=== PATIENT | female | born 1955 | race Caucasian/White ===

== ENCOUNTER → 2016-05-24 | Outpatient (REF) | payer OTHER ==
[2016-05-24 17:09] LABS: ALBUMIN 3.6 GM/DL (3.2-5.2); ALBUMIN/GLOBULIN RATIO 1.03 (1.00-1.93); ALKALINE PHOSPHATASE 99 U/L (45-117); ALT/SGPT 28 U/L (12-78); ANION GAP 8 MEQ/L (8-16); AST/SGOT 15 U/L (15-37); BILIRUBIN,TOTAL 0.4 MG/DL (0.2-1.0); BLOOD UREA NITROGEN 17 MG/DL (7-18); CALCIUM LEVEL 9.1 MG/DL (8.5-10.1); CARBON DIOXIDE LEVEL 31 MEQ/L (21-32); CHLORIDE LEVEL 103 MEQ/L (98-107); CHOLESTEROL LEVEL 186 MG/DL (<200); CREATININE FOR GFR 0.62 MG/DL (0.55-1.02); GLOMERULAR FILTRATION RATE > 60.0 (>51); GLUCOSE, FASTING 181 MG/DL (70-105); POTASSIUM SERUM 4.1 MEQ/L (3.5-5.1); SODIUM LEVEL 142 MEQ/L (136-145); TOTAL PROTEIN 7.1 GM/DL (6.4-8.2); TRIGLYCERIDES LEVEL 298 MG/DL (<150)
== END | disposition home or self-care (01) ==
LOC: M SFHCCLAY 10:38
PROVIDERS: ATTEND Nurse Practitioner
DX: E11.9 Type 2 diabetes mellitus without complications (principal)

== ENCOUNTER → 2016-08-22 | Outpatient (REF) | payer OTHER ==
[2016-08-22 17:36] LABS: ALBUMIN 3.7 GM/DL (3.2-5.2); ALBUMIN/GLOBULIN RATIO 1.12 (1.00-1.93); ALKALINE PHOSPHATASE 70 U/L (45-117); ALT/SGPT 59 U/L (12-78); ANION GAP 8 MEQ/L (8-16); AST/SGOT 68 U/L (15-37); BILIRUBIN,TOTAL 0.6 MG/DL (0.2-1.0); BLOOD UREA NITROGEN 12 MG/DL (7-18); CALCIUM LEVEL 9.1 MG/DL (8.5-10.1); CARBON DIOXIDE LEVEL 28 MEQ/L (21-32); CHLORIDE LEVEL 103 MEQ/L (98-107); CHOLESTEROL LEVEL 124 MG/DL (<200); CREATININE FOR GFR 0.73 MG/DL (0.55-1.02); GLOMERULAR FILTRATION RATE > 60.0 (>51); GLUCOSE, FASTING 259 MG/DL (70-105); POTASSIUM SERUM 4.5 MEQ/L (3.5-5.1); SODIUM LEVEL 139 MEQ/L (136-145); TRIGLYCERIDES LEVEL 212 MG/DL (<150)
== END ==
LOC: M SFHCCLAY 11:22
PROVIDERS: ATTEND Nurse Practitioner
DX: E11.8 Type 2 diabetes mellitus with unspecified complications (principal)

== ENCOUNTER → 2016-10-21 | Outpatient (CLI) | payer OTHER ==
--- NOTE | 2016-10-22 01:47 | REP ---
Clinical: Chest pain. Comparison: None. Technique: PA and lateral. Findings: The mediastinum and cardiac silhouette are normal. The lung de jesus demonstrate chronic-appearing changes without obvious acute consolidation, effusion, or pneumothorax. The skeletal structures are intact and normal. Impression: Chronic appearing changes. No acute process identified. If patient remains symptomatic, consider chest CT for follow-up. Signed by Albert Phan MD 10/22/2016 01:38 A
== END ==
LOC: M CLY 14:09
PROVIDERS: ATTEND Nurse Practitioner
DX: R07.9 Chest pain, unspecified (principal)

== ENCOUNTER → 2016-11-25 | Outpatient (REF) | payer OTHER ==
[2016-11-26 11:24] LABS: ALBUMIN 3.8 GM/DL (3.2-5.2); ALBUMIN/GLOBULIN RATIO 1.12 (1.00-1.93); ALKALINE PHOSPHATASE 86 U/L (45-117); ALT/SGPT 42 U/L (12-78); ANION GAP 11 MEQ/L (8-16); AST/SGOT 26 U/L (15-37); BILIRUBIN,TOTAL 0.5 MG/DL (0.2-1.0); BLOOD UREA NITROGEN 11 MG/DL (7-18); CALCIUM LEVEL 8.9 MG/DL (8.5-10.1); CARBON DIOXIDE LEVEL 23 MEQ/L (21-32); CHLORIDE LEVEL 105 MEQ/L (98-107); CHOLESTEROL LEVEL 95 MG/DL (<200); CREATININE FOR GFR 0.75 MG/DL (0.55-1.02); GLOMERULAR FILTRATION RATE > 60.0 (>51); GLUCOSE, FASTING 311 MG/DL (70-105); SODIUM LEVEL 139 MEQ/L (136-145); TOTAL PROTEIN 7.2 GM/DL (6.4-8.2); TRIGLYCERIDES LEVEL 294 MG/DL (<150)
== END ==
LOC: M SFHCCLAY 14:25
PROVIDERS: ATTEND Nurse Practitioner
DX: E11.8 Type 2 diabetes mellitus with unspecified complications (principal); E78.5 Hyperlipidemia, unspecified

== ENCOUNTER → 2016-11-27 | Outpatient (CLI) | payer OTHER ==
--- NOTE | 2016-11-27 17:11 | REP ---
RIGHT HIP: Two views of the right hip are performed. There is no evidence of acute fracture or dislocation. There is moderate diffuse joint space narrowing with subchondral sclerosis and diffuse spurring. Mild tendinous calcifications are seen along the greater trochanter. IMPRESSION: Moderate degenerative changes.
== END ==
LOC: M CLY 15:41
PROVIDERS: ATTEND Nurse Practitioner
DX: M16.11 Unilateral primary osteoarthritis, right hip (principal)

== ENCOUNTER → 2016-12-18 | Outpatient (CLI) | payer OTHER ==
--- NOTE | 2016-12-18 17:34 | REP ---
CAROTID ULTRASOUND: Real-time sonographic evaluation and duple Doppler interrogation of extracranial carotid vasculature is performed. There is moderately severe partially calcified plaque in the right carotid bulb but no elevation is noted of the peak systolic velocity in the right internal carotid artery, without hemodynamically significant stenosis of the right ICA. Findings are compatible with luminal narrowing of the right IMMANUEL less than 50%. 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 There is reversal of flow in the left external carotid artery which supplies the left internal carotid artery. Normal direction of flow is seen in the right vertebral artery. The left vertebral artery is not visualized. RIGHT LEFT Peak systolic velocity ICA 86.8 cm/s 42.2 cm/s Diastolic velocity ICA 21.7 20.4 Peak systolic velocity CCA 63.8 10.6 Peak systolic velocity ECA 155.3 82.2 ICA/CCA ratio 1.36 0.68 IMPRESSION: Moderately severe plaquing and narrowing right carotid bulb. However there is no compelling duplex Doppler sonographic evidence of hemodynamically significant stenosis of the right internal carotid artery. The left common carotid artery is occluded. There is reversal of flow in the left external carotid artery which supplies flow to the left internal carotid artery. Signed by Rigo Nina MD 12/19/2016 01:28 P
== END ==
LOC: M RAD 14:38
PROVIDERS: ATTEND Internal Medicine Cardiovascular Disease
DX: I65.23 Occlusion and stenosis of bilateral carotid arteries (principal)

== ENCOUNTER → 2017-02-24 | Outpatient (REF) | payer OTHER ==
[2017-02-24 12:24] LABS: ALBUMIN 3.8 GM/DL (3.2-5.2); ALBUMIN/GLOBULIN RATIO 1.19 (1.00-1.93); ALKALINE PHOSPHATASE 79 U/L (45-117); ALT/SGPT 40 U/L (12-78); ANION GAP 11 MEQ/L (8-16); AST/SGOT 22 U/L (15-37); BILIRUBIN,TOTAL 0.5 MG/DL (0.2-1.0); BLOOD UREA NITROGEN 11 MG/DL (7-18); CALCIUM LEVEL 8.5 MG/DL (8.8-10.2); CARBON DIOXIDE LEVEL 24 MEQ/L (21-32); CHLORIDE LEVEL 103 MEQ/L (98-107); CHOLESTEROL LEVEL 104 MG/DL (<200); CREATININE FOR GFR 0.75 MG/DL (0.55-1.02); GLOMERULAR FILTRATION RATE > 60.0 (>45); GLUCOSE, FASTING 302 MG/DL (80-110); POTASSIUM SERUM 4.4 MEQ/L (3.5-5.1); SODIUM LEVEL 138 MEQ/L (136-145); TRIGLYCERIDES LEVEL 186 MG/DL (<150)
== END ==
LOC: M SFHCCLAY 10:46
PROVIDERS: ATTEND Nurse Practitioner
DX: E11.8 Type 2 diabetes mellitus with unspecified complications (principal)

== ENCOUNTER → 2017-06-03 | Outpatient (REF) | payer OTHER ==
[2017-06-03 20:02] LABS: ESTIMATED AVERAGE GLUCOSE 329 MG/DL (60-110); HEMOGLOBIN A1c 13.1 %
[2017-06-03 20:19] LABS: ALBUMIN 3.7 GM/DL (3.2-5.2); ALBUMIN/GLOBULIN RATIO 1.06 (1.00-1.93); ALKALINE PHOSPHATASE 142 U/L (45-117); ALT/SGPT 35 U/L (12-78); ANION GAP 11 MEQ/L (8-16); AST/SGOT 18 U/L (7-37); BILIRUBIN,TOTAL 0.3 MG/DL (0.2-1.0); BLOOD UREA NITROGEN 9 MG/DL (7-18); CALCIUM LEVEL 8.6 MG/DL (8.8-10.2); CARBON DIOXIDE LEVEL 27 MEQ/L (21-32); CHLORIDE LEVEL 96 MEQ/L (98-107); CREATININE FOR GFR 0.89 MG/DL (0.55-1.02); GLOMERULAR FILTRATION RATE > 60.0 (>45); POTASSIUM SERUM 4.1 MEQ/L (3.5-5.1); SODIUM LEVEL 134 MEQ/L (136-145); TOTAL PROTEIN 7.2 GM/DL (6.4-8.2)
[2017-06-03 20:52] LABS: GLUCOSE, FASTING 650 MG/DL (70-100)
== END ==
LOC: M SFHCCLAY 13:22
DX: E11.8 Type 2 diabetes mellitus with unspecified complications (principal)

== ENCOUNTER → 2017-06-05 | Outpatient (REF) | payer OTHER ==
[2017-06-05 21:31] LABS: CREATININE, URINE 29.1 MG/DL; MALB URINE SIEMENS 12.5 MG/L; MAU/CREAT RATIO 42.9 MCG/MG (0.0-30.0)
== END ==
LOC: M SFHCCLAY 13:34
DX: E11.65 Type 2 diabetes mellitus with hyperglycemia (principal)
CPT/HCPCS: 82043

== ENCOUNTER → 2017-06-30 | Outpatient (CLI) | payer OTHER | LOC: M RAD 15:52 | DX: R53.1 Weakness (principal); R26.0 Ataxic gait | CPT/HCPCS: 70551 ==

== ENCOUNTER → 2017-07-09 | Outpatient (REF) | payer OTHER ==
[2017-07-09 17:01] LABS: ALBUMIN 3.3 GM/DL (3.2-5.2); ALBUMIN/GLOBULIN RATIO 0.97 (1.00-1.93); ALKALINE PHOSPHATASE 86 U/L (45-117); ALT/SGPT 24 U/L (12-78); ANION GAP 3 MEQ/L (8-16); AST/SGOT 17 U/L (7-37); BILIRUBIN,TOTAL 0.5 MG/DL (0.2-1.0); BLOOD UREA NITROGEN 12 MG/DL (7-18); CALCIUM LEVEL 8.8 MG/DL (8.8-10.2); CARBON DIOXIDE LEVEL 34 MEQ/L (21-32); CHLORIDE LEVEL 102 MEQ/L (98-107); CREATININE FOR GFR 0.63 MG/DL (0.55-1.30); GLOMERULAR FILTRATION RATE > 60.0 (>45); GLUCOSE, FASTING 302 MG/DL (70-100); GLUCOSE,RANDOM 302 MG/DL (LESS THAN 200); POTASSIUM SERUM 4.1 MEQ/L (3.5-5.1); SODIUM LEVEL 139 MEQ/L (136-145); TOTAL PROTEIN 6.7 GM/DL (6.4-8.2)
[2017-07-09 19:03] LABS: MAU/CREAT RATIO 156.2 MCG/MG (0.0-30.0)
== END ==
LOC: M SFHCCLAY 11:38
DX: E11.65 Type 2 diabetes mellitus with hyperglycemia (principal)

== ENCOUNTER → 2017-07-30 | Outpatient (REF) | payer OTHER ==
[2017-07-30 12:08] LABS: AMPHETAMINES URINE REFLEX NEGATIVE (NEGATIVE); BARBITURATES URINE REFLEX NEGATIVE (NEGATIVE); BENZODIAZEPINES URINE REFLEX NEGATIVE (NEGATIVE); COCAINE METABOLITE URINE REFLE NEGATIVE (NEGATIVE); METHADONE URINE REFLEX NEGATIVE (NEGATIVE); PHENCYCLIDINE URINE REFLEX NEGATIVE (NEGATIVE)
[2017-07-30 12:12] LABS: CANNABINOIDS URINE REFLEX PENDING CONFIRMATION (NEGATIVE); OPIATES URINE REFLEX PENDING CONFIRMATION (NEGATIVE)
== END ==
LOC: M SFHCCLAY 09:22
DX: R26.0 Ataxic gait (principal)
CPT/HCPCS: 80349

== ENCOUNTER → 2019-11-10 | Outpatient (CLI) | payer OTHER | LOC: M LABSMTC 11:40 | PROVIDERS: ATTEND Internal Medicine Cardiovascular Disease | DX: Z01.812 Encounter for preprocedural laboratory examination (principal); Z11.59 Encounter for screening for other viral diseases | CPT/HCPCS: C9803; U0003 ==

== ENCOUNTER → 2020-01-07 | Outpatient (CLI) | payer OTHER ==
[~2020-01-07] MED LIST: ALBU83IN INH; ASPI81CH33 PO; BACL10TA8 PO; CLOP75TA2 PO; DULO1CAP6 PO; FURO20TA2 PO; GABA800T4 PO; LISI-542 PO; METF10004 PO; METO75TA PO; SIMV40TA20 PO; SYMB16INH INH; TRAM50TA2 PO
--- NOTE | 2020-01-21 15:28 | REP ---
BILATERAL LOWER EXTREMITY ARTERIAL DOPPLER ULTRASOUND HISTORY: Peripheral vascular disease. FINDINGS: There is a disparity in brachial artery blood pressure in the arms, 80 on the left and 130 on the right. Ankle-brachial index on the right is 0.5 and on the left 1.0. Heavily calcified vessels are observed bilaterally in the lower extremities. Monophasic waveforms are noted throughout the right lower extremity, question inflow disease. Biphasic waveforms are noted in the left lower extremity. No high grade stenosis is seen. Right lower extremity arterial Doppler velocity chart: Right SCIENTIFIC WRITER PSV 65 cm/s. Profunda 39. Proximal SFA 65. Mid SFA 85. Distal SFA 45. Popliteal 38. Proximal BERENICE 51. Tibioperoneal trunk 48. Proximal OIL FIELD TECHNICIAN 37. Distal OIL FIELD TECHNICIAN 38. Distal BERENICE 28. Left lower extremity arterial Doppler velocity chart: Left SCIENTIFIC WRITER PSV 118 cm/s. Profunda 51. Proximal SFA 105. Mid SFA 146. Distal SFA 104. Popliteal 84. Proximal BERENICE 50. Tibioperoneal trunk 64. Proximal OIL FIELD TECHNICIAN 66. Distal OIL FIELD TECHNICIAN 31. Distal BERENICE 48. MTDD
== END ==
LOC: M RAD 13:55
PROVIDERS: ATTEND Podiatrist Foot & Ankle Surgery
DX: I70.203 Unspecified atherosclerosis of native arteries of extremities, bilateral legs (principal)

== ENCOUNTER → 2020-02-08 | Outpatient (CLI) | payer OTHER ==
[~2020-02-08] MED LIST changes: +ACETAMINOPHEN TAB 650MG DOSE (2X325MG) PO PRN; +HumaLOG INSULIN (NovoLOG) PER UNIT As Ordered ONE; +ISOVUE-300 61% 50ML VIAL As Ordered ONE; +LIDOCAINE 1% MDV 20ML VIAL As Ordered ONE; +MIDAZOLAM INJ 2MG/2ML VIAL (J2250 PER 1MG) As Ordered ONE; +PERCOCET 5MG/325MG TAB As Ordered ONE; +PERCOCET 5MG/325MG TAB PO PRN; +fentaNYL 100 MCG/2 ML INJECTION (J3010) As Ordered ONE
--- NOTE | 2020-02-08 11:07 | ROOPDOC ---
[facility] Report Of Operation Report of Operation DATE OF PROCEDURE: 02/08/20 PREPROCEDURE DIAGNOSES: Atherosclerosis in the [place] artery supply style limiting claudication POSTPROCEDURE DIAGNOSES: Same PROCEDURE: 1. Ultrasound-guided access bilateral common femoral arteries 2. Aortoiliofemoral arteriogram 3. Attempt to cross chronic total occlusion right common iliac artery, aborted 4. Right lower extremity runoff from right femoral sheath 5. Stenting the left common iliac artery with 8 x 27 and 8 x 57 express balloon expandable stents 6. Completion arteriogram 7. Mynx closure bilateral common femoral artery SURGEON: Cedric Castorena MD ANESTHESIA: Local anesthesia 15 mL lidocaine. Moderate intravenous conscious sedation was supervised by Dr. Castorena. The patient was independently monitored by registered nurse assigned to the Department of radiology using automated blood pressure, EKG, and pulse oximetry. The detailed sedation record is permanently stored in the hospital information system. The following is a brief record: Start time 09:42, stop time 10:31, Versed 2 mg IV, fentanyl 100 g IV, heparin 3000 units IV. CONTRAST: 40 mL Isovue-300 INDICATION FOR PROCEDURE: This a very pleasant 65-year-old patient with severe claudication right lower extremity greater than left, lifestyle limiting with short distance claudication and long recovery time in the right leg. Her symptoms have been present for over 4 years, but they've gotten progressively worse. Risks benefits alternatives to an arteriogram potential intervention were explained to the patient she is agreeable to proceed. Informed consent was obtained. INTERPRETATION: 1. The distal aorta is calcified and ectatic but patent. 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 The external iliac and hypogastric are heavily calcified but patent. The artery fills from collaterals from the left iliac circulation. The left common iliac artery is heavily calcified with multiple areas of stenosis ranging from 30% to 70%. Hypogastric is patent and significant collaterals to the right side. The external iliac artery is calcified but patent. 2. The right lower extremity runoff was challenging to see due to washout of contrast from limited flow. It appears that the SFA is patent but calcified and ectatic. There is good flow through the profunda. The popliteal artery is patent and there is two-vessel runoff to the foot through the posterior tibial artery and peroneal artery. Was not able to visualize the anterior tibial artery well, so I'm not sure if there is any flow or trickle flow, but no substantial flow was noted. 3. After angioplasty and stenting of the left common iliac artery, there is widely patent flow with no residual stenosis noted and excellent flow into the hypogastric and external iliac artery as well as collateral circulation to the right side. REPORT OF OPERATION: The patient was brought to the angiographic suite in stable condition. Her bilateral groins were prepped and draped in a sterile fashion. A timeout was performed. Sedation was administered without complication. Local anesthesia was administered to the skin and subcutaneous tissue over the left common femoral artery. A microneedle was used to access the artery under ultrasound guidance. A wire was passed through this access and the needle was removed. A 4 Faroese sheath was placed and flushed with saline. A Glidewire and flushing catheter were advanced into the distal aorta. Aortoiliofemoral arteriograms were performed. Please interpretation above. We attempted to go up and over the bifurcation through the occlusion in the right common iliac artery from an antegrade approach, but this was unsuccessful. After 5 minutes, we decided to abort this. Due to stenosis noted in the left iliac, we exchanged the sheath over a wire for 7 Faroese sheath. At this point, I determine the patient would need left iliac stents regardless of that if we were able to cross the right side, as we would need improved inflow to use the left femoral as a donor for a femorofemoral bypass to the right. We then used ultrasound to gain access to the right common femoral artery with a microneedle. A wire was passed through this access and the needle was removed. A 4 Faroese sheath was placed and flushed with saline. We attempted to cross retrograde through the occlusion in the right common iliac artery from this access, but unfortunately this was not successful. We then exchanged the sheath over wire for 5 Faroese sheath so we would be able to try to cross with the help of her [place] catheter. Following this, we spent about 30 minutes trying to cross retrograde through the occlusion. We eventually were able to cross in a subintimal playing, but we were not able to reenter the true lumen in the aorta. After 30 minutes, this was aborted. Contrast injection confirmed that there was no extravasation from our attempts to cross the occlusion. We then returned our attention to the left groin. First and 8 x 57 balloon expandable stent was placed in the distal to proximal common iliac artery, and this was extended proximally with an 8 x 27 balloon expandable stent with a 1 cm overlap. Following this, there was widely patent flow through the left iliac system with no significant residual stenosis. No dissection or extravasation were noted. The flow was brisk and rapid and had excellent filling across the abdomen to the right iliac system. This then concluded the procedure. We do plan Mynx closure device in the left common femoral artery. The closure device had a missing part, and I am unsure if deployment was successful or unsuccessful, so we held pressure an extra 20 minutes to make sure we had good hemostasis. On the right, the Mynx closure device to play without difficulty and good hemostasis was noted. Pressure was held for 5 minutes and sterile dressings were applied. Patient was then taken to recovery in stable condition. She tolerated the procedure and the sedation well. ESTIMATED BLOOD LOSS: Approximately 5 mL. COMPLICATIONS: None. PLAN: Okay to resume home diet medications. Patient will need 60 days Plavix post stenting. No strenuous exercise or lifting greater than 5 pounds for 48 hours. We will see her back in clinic in a week to check her groin access sites and discuss options for a femoral-femoral bypass. The patient has chronic collateralization to the right side, and we have improved flow now by stenting the left iliac artery to provide better inflow to the right side as well as the left. We appreciate the opportunity to per to speak the care of this patient. CEDRIC CASTORENA MD Feb 08, 2020 11:07
[2020-02-08 14:45] VITALS: BP 147/59
== END ==
LOC: M IRPRO 08:27
PROVIDERS: ATTEND Surgery Vascular Surgery
DX: I70.213 Atherosclerosis of native arteries of extremities with intermittent claudication, bilateral legs (principal); I70.92 Chronic total occlusion of artery of the extremities; I65.23 Occlusion and stenosis of bilateral carotid arteries; I10 Essential (primary) hypertension; I25.2 Old myocardial infarction; E11.9 Type 2 diabetes mellitus without complications; E78.00 Pure hypercholesterolemia, unspecified; F17.210 Nicotine dependence, cigarettes, uncomplicated; Z79.82 Long term (current) use of aspirin; Z79.84 Long term (current) use of oral hypoglycemic drugs; Z79.899 Other long term (current) drug therapy; Z91.018 Allergy to other foods; Z91.041 Radiographic dye allergy status
CPT/HCPCS: 37221; 75630; 99152; 99153; C1760; C1769; C1876; C1887; C1894; J1644; J2250; J3010; Q9967

== ENCOUNTER → 2020-02-17 | Outpatient (CLI) | payer OTHER ==
[~2020-02-17] MED LIST changes: -ACETAMINOPHEN TAB 650MG DOSE (2X325MG) PO PRN; -HumaLOG INSULIN (NovoLOG) PER UNIT As Ordered ONE; -ISOVUE-300 61% 50ML VIAL As Ordered ONE; -LIDOCAINE 1% MDV 20ML VIAL As Ordered ONE; -MIDAZOLAM INJ 2MG/2ML VIAL (J2250 PER 1MG) As Ordered ONE; -PERCOCET 5MG/325MG TAB As Ordered ONE; -PERCOCET 5MG/325MG TAB PO PRN; -fentaNYL 100 MCG/2 ML INJECTION (J3010) As Ordered ONE
--- NOTE | 2020-02-22 07:51 | REP ---
CAROTID ULTRASOUND HISTORY: Carotid occlusion. TECHNIQUE: Real-time ultrasound evaluation and duplex Doppler interrogation of the extracranial carotid vasculature is performed. FINDINGS: Globhlgw-jf-xvwiss calcific plaque is seen in the right carotid bulb with distal acoustic shadowing somewhat limiting evaluation of the underlying lumen. There is plaquing extending into the proximal internal and external carotid arteries. I do not see evidence of significantly elevated peak systolic velocity in the right internal carotid artery with no definite duplex Doppler sonographic evidence of hemodynamically significant stenosis. On the left, there is occlusion of the proximal and mid common carotid artery. There is reversal of flow in the left external carotid artery and distal common carotid artery. Patent flow is seen in a normal direction in the left internal carotid artery. There is normal direction of flow in both vertebral arteries. PEAK FLOW VELOCITY ANALYSIS RIGHT LEFT ICA PSV 115 cm/s 38.2 cm/s ICA EDV 31.0 cm/s 23.3 cm/s ECA PSV 98.7 49.7 (reversed) CCA PSV 48.0 cm/s 27.2 cm/s (reversed) ICA/CCA RATIO 2.4 1.8 IMPRESSION: Cfdohqmy-rf-euebiu calcific plaque right carotid bulb extending into the internal and external carotid arteries with luminal narrowing not optimally evaluated due to distal acoustic shadowing. No definite duplex Doppler sonographic evidence of hemodynamically significant stenosis on the right. On the left, there is occlusion of the proximal and mid common carotid artery as seen on prior study of 12/18/2016. There is reversal of flow in the left external carotid artery with normal direction of flow in the left internal carotid artery. [facility]
== END ==
LOC: M RAD 12:38
PROVIDERS: ATTEND Physician Assistant
DX: I65.23 Occlusion and stenosis of bilateral carotid arteries (principal)

== ENCOUNTER → 2020-02-25 | Outpatient (CLI) | payer OTHER ==
--- NOTE | 2020-02-25 12:24 | REP ---
INDICATION: CLAUDICATION. Atherosclerosis of [place] arteries. Intermittent claudication bilateral legs. Patient is status post left common iliac artery stenting. COMPARISON: Comparison sonography January 07, 2020.. TECHNIQUE: Bilateral lower extremity arterial Doppler sonography. FINDINGS: Ankle-brachial index remains normal on the left at 0.96. It is low on the right and 0.48 essentially unchanged. The left brachial artery blood pressure is lower than the right by 40 mmHg. Questions subclavian stenosis on the left. Relatively slow flow observed in the distal aorta. The right common iliac artery is occluded. Monophasic tardus parvus waveform is seen in the right external iliac artery. An patent left common iliac artery stent. In the right lower extremity, monophasic waveforms are noted with tardus parvus waveforms and decreased peak systolic flow velocities indicating an interval decrement in flow pattern in the right lower extremity generally. No focal stenosis. Increased flow velocities in the left common femoral artery it are observed. Biphasic waveforms are noted through most of the left lower extremity tracings. Right lower extremity arterial Doppler velocity chart: Abdominal aorta PSV 30 cm/S Right IVON occluded Right EIA 17 Right DIP DYER PSV 58 cm/S Profundal 40 Proximal SFA 49 Mid SFA 46 Distal SFA 45 Popliteal 30 Proximal BERENICE 26 Tibial-peroneal trunk 28 Proximal BLANKET MAKER 27 Distal BLANKET MAKER 20 Distal BERENICE 21 Left lower extremity arterial Doppler velocity chart: Abdominal aorta PSV 30 cm/S Left IVON PSV 140 cm/S Left EIA 131 Left DIP DYER PSV 201 cm/S Profundal at 1:02 Proximal SFA 123 Mid SFA 136 Distal SFA 123 Popliteal 68 Proximal BERENICE 66 Tibial-peroneal trunk 53 Proximal BLANKET MAKER 47 Distal BLANKET MAKER 38 Distal BERENICE 35 IMPRESSION: Patent left common iliac artery stent. Occlusion right common iliac artery. Interval decrease in flow parameters right lower extremity with tardus parvus arterial waveforms. Improved inflow on the left. Disparate brachial artery pressures question left subclavian stenosis. <Electronically signed by Tony Silvestre > 02/25/20 1223
== END ==
LOC: M RAD 09:52
PROVIDERS: ATTEND Physician Assistant
DX: I70.213 Atherosclerosis of native arteries of extremities with intermittent claudication, bilateral legs (principal); Z95.820 Peripheral vascular angioplasty status with implants and grafts

== ENCOUNTER 2020-03-31 07:30 | Inpatient (IN) | payer OTHER ==
--- NOTE | 2020-03-20 15:23 | HPEPDOC ---
[facility] Medical History & Physical Date of Admission Apr 05, 2020 Date of Service: Apr 05, 2020 History and Physical Vascular surgery. Dr. Castorena HISTORY OF PRESENT ILLNESS: Ms. Panchal is a very pleasant 65-year-old patient with severe peripheral vascular disease, right iliac artery occlusion, status post left iliac artery stenting with improve collateral circulation over to the right femoral vessels, and improve flow in the left lower extremity, but still significant claudication symptoms in the right lower extremity. Her claudication in the right lower extremity short distance, with a long recovery time, and his lifestyle limiting. Recommendation as per Dr. Castorena was to proceed with a [id number] femorofemoral bypass. Risks benefits and alternatives were explained to the patient and she was agreeable to proceed. PMH/PSH: Hypertension CAD/History of ND 2013/cardiac stent 2013 NIDDM Dyslipidemia COPD Chronic back pain DDD Hypercholesterolemia Anxiety Depression Tubal ligation SOCIAL HISTORY: Current smoker FAMILY HISTORY: HTN, diabetes. ALLERGIES: Please see below. REVIEW OF SYSTEMS: As noted in HPI otherwise 11 point review of systems unremarkable. HOME MEDICATIONS: Please see below. PHYSICAL EXAMINATION: Const: Appears medically stable. No signs of apparent distress present. Head/Face: Normal on inspection. ENMT: Tympanic membranes: intact. External nose WNL. Neck: Supple, no carotid bruits present Resp: No wheezing. Clear to auscultation bilaterally. CV: Rate is regular. Rhythm is regular. Abdomen: Bowel sounds are positive. Abdomen is soft, nontender, and nondistended. Lymph: No palpable or visible regional lymphadenopathy. Musculo:Gait steady, distal pulses weakly palpable left lower extremity, less than 1 second capillary refill and foot is warm and well-perfused. Relaxer may pulses not palpable, monophasic Doppler signals present. Capillary refill slightly delayed. Skin:No rashes or lesions Neuro:Alert and oriented x3, moves all extremities equally, no focal neurologic deficits noted. Psych: Pleasant and cooperative . Assessment/PLAN: 1. Atherosclerosis [place] vessels lower extremities. Severe peripheral vascular disease status post left iliac artery stenting and still with persistent lifestyle limiting right lower extremity claudication due to right iliac artery occlusion Plan for [id number] femorofemoral bypass as per Dr. Castorena. Informed consent is obtained and placed with the chart. Transfusion consent is obtained and placed with the chart. Continue aspirin and statin The patient is on Plavix daily. Patient is advised to hold Plavix 5 days prior to surgery, but do not hold aspirin. Cardiac clearance with stress test is requested and placed with the chart. Medical clearance requested and placed with the chart. NPO Admission labs pending including CBC, BMP, INR, PTT, type and screen. Ancef 2 g IV preoperatively. 2. Tobacco use. The patient is a smoker and we have discussed with her that all the interventions we do will likely feel she continues to smoke. For long-term limb preservation, we have reiterated extensively with the patient that she needs to quit smoking. We will continue to encourage her. She should also continue with aspirin and Plavix and statin daily for best medical management, but we will hold Plavix for 5 days prior to surgery. Vital Signs Admission vital signs pending. Laboratory Data Labs 24H Admission labs pending. Home Medications Scheduled Aspirin (Aspirin) 81 Mg Tab.chew, 81 MG PO DAILY for pain Baclofen (Baclofen) 10 Mg Tablet, 10 MG PO TID Budesonide/Formoterol (Symbicort 160-4.5 Mcg Inhaler) 6 Gm Hfa.aer.ad, 2 PUFF INH BID Clopidogrel Bisulfate (Clopidogrel) 75 Mg Tablet, 75 MG PO DAILY Duloxetine Hcl (Duloxetine HCl) 60 Mg Capsule.dr, 60 MG PO DAILY Furosemide (Furosemide) 20 Mg Tablet, 20 MG PO DAILY Gabapentin (Gabapentin) 800 Mg Tablet, 800 MG PO TID Lisinopril (Lisinopril) 5 Mg Tablet, 5 MG PO DAILY Metformin HCl (Metformin HCl) 1,000 Mg Tablet, 1,000 MG PO BID Metoprolol Tartrate (Metoprolol Tartrate) 75 Mg Tablet, 75 MG PO BID Simvastatin (Simvastatin) 40 Mg Tablet, 40 MG PO DAILY Scheduled PRN Tramadol HCl (Tramadol HCl) 50 Mg Tablet, 50 MG PO TIDP PRN for pain Miscellaneous Medications Albuterol Sulf (Albuterol Sulfate) 2.5 Mg/3 Ml Vial.neb, 2.5 MG INH Allergies Coded Allergies: Contrast Media (Verified Allergy, Severe, 02/04/20) A-FIB/CHADSVASC A-FIB History Current/History of A-Fib/PAF?: No Anamaria Lin Mar 20, 2020 15:23
[~2020-03-31] VITALS: Ht 170.2 cm; Wt 70.5 kg
[2020-04-05] VITALS (8 sets, daily range): BP systolic 102–128; BP diastolic 58–76
[2020-04-05] MEDS ORDERED: LIDOCAINE 1% MDV 20ML VIAL SQ PRN (06:00)
[2020-04-05] MEDS ORDERED: ceFAZolin SOD 2 GM in IV 1 EA IV ONE (07:00)
[2020-04-05] MEDS ORDERED: LR 1,000 ML IV ONE (07:00)
[2020-04-05 10:39] LABS: HEMATOCRIT 41.4 % (36.0-47.0); HEMOGLOBIN 13.1 g/dl (12.0-15.5); MEAN CORPUSCULAR HEMOGLOBIN 29.8 pg (27.0-33.0); MEAN CORPUSCULAR HGB CONC 31.6 g/dl (32.0-36.5); MEAN CORPUSCULAR VOLUME 94.1 fl (80.0-96.0); PLATELET COUNT, AUTOMATED 211 10^3/uL (150-450); WHITE BLOOD COUNT 10.3 10^3/uL (4.0-10.0)
[2020-04-05] MEDS ORDERED: propofoL 200 MG/20 ML VIAL As Ordered ONE (10:45)
[2020-04-05] MEDS ORDERED: LIDOCAINE 2% 100MG/5ML SDV (FOR ANES.) As Ordered ONE (10:45)
[2020-04-05] MEDS ORDERED: dexameTHASONE 4 MG/ML 1ML VIAL (J1100 PER 1MG) As Ordered ONE (10:45)
[2020-04-05] MEDS ORDERED: fentaNYL 100 MCG/2 ML INJECTION (J3010) As Ordered ONE ×2 (10:45→16:45)
[2020-04-05] MEDS ORDERED: ACETAMINOPHEN 1000MG 100ML IV BTL (OFIRMEV) (J0131 PER 10MG) As Ordered ONE (10:45)
[2020-04-05] MEDS ORDERED: SUGAMMADEX SODIUM 500 MG/5 ML VIAL (BRIDION) As Ordered ONE (10:45)
[2020-04-05] MEDS ORDERED: ROCURONIUM BROMIDE 50 MG/5 ML VIAL As Ordered ONE ×2 (10:45→13:19)
[2020-04-05] MEDS ORDERED: ONDANSETRON 4MG/2ML VIAL As Ordered ONE (10:45)
[2020-04-05] MEDS ORDERED: MIDAZOLAM INJ 2MG/2ML VIAL (J2250 PER 1MG) As Ordered ONE (10:46)
[2020-04-05] MEDS ORDERED: MELO7.5T35 PO (10:49)
[2020-04-05] MEDS ORDERED: GLIP5TAB20 PO (10:49)
[2020-04-05 10:50] LABS: INR 0.99; PROTHROMBIN TIME 13.3 SECONDS (12.5-14.3)
[2020-04-05 10:51] LABS: PARTIAL THROMBOPLASTIN TIME 26.6 SECONDS (24.2-38.5)
[2020-04-05 11:15] LABS: BLOOD UREA NITROGEN 17 MG/DL (7-18); CALCIUM LEVEL 9.9 MG/DL (8.8-10.2); CARBON DIOXIDE LEVEL 28 MEQ/L (21-32); CHLORIDE LEVEL 103 MEQ/L (98-107); CREATININE FOR GFR 0.87 MG/DL (0.55-1.30); GLOMERULAR FILTRATION RATE > 60.0 (>45); GLUCOSE, FASTING 215 MG/DL (70-100); POTASSIUM SERUM 4.2 MEQ/L (3.5-5.1); SODIUM LEVEL 135 MEQ/L (136-145)
[2020-04-05] MEDS ORDERED: HEPARIN SOD (PORCINE) 5000UNITS/ML 1ML VIAL/SYRINGE As Ordered ONE ×2 (12:06→13:18)
[2020-04-05] MEDS ORDERED: BUPIVACAINE HCL 0.5% 30 ML VIAL As Ordered ONE (12:07)
[2020-04-05] MEDS ORDERED: LIDOCAINE 2% W/EPINEPHRINE 20ML VIAL **PRES FREE As Ordered ONE (12:12)
[2020-04-05] MEDS ORDERED: METOPROLOL TART 25 MG TABLET PO ONE (12:15)
[2020-04-05] MEDS ORDERED: ETOMIDATE INJ 20MG/10ML VIAL As Ordered ONE (12:37)
[2020-04-05] MEDS ORDERED: PHENYLephrine HCL 500 MCG/5 ML (100MCG/ML) SYRINGE (J2370) As Ordered ONE (12:48)
[2020-04-05] MEDS ORDERED: ceFAZolin 1GM VIAL (J0690 PER 500MG) As Ordered ONE (16:18)
--- NOTE | 2020-04-05 17:27 | ROOPDOC ---
[facility] Report Of Operation Report of Operation DATE OF PROCEDURE: 04/05/20 PREPROCEDURE DIAGNOSES: Atherosclerosis of the arteries with lifestyle limiting claudication POSTPROCEDURE DIAGNOSES: Same PROCEDURE: 1. Bilateral common femoral endarterectomies with patch angioplasty 2. Tagv-eg-cyijk femorofemoral bypass SURGEON: Ayaka Castorena MD ANESTHESIA: General anesthesia and local INDICATION FOR PROCEDURE: This is a very pleasant 65-year-old patient with atherosclerosis of the [place] arteries and lifestyle limiting claudication of the lower extremities, right greater than left. 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 Risks benefits and alternatives to bilateral common femoral endarterectomies and kqfa-gc-[id number] femorofemoral bypass were explained to the patient. She is agreeable to proceed. Informed consent was obtained. REPORT OF OPERATION: The patient was brought to the operating room in stable condition. General anesthesia and antibiotics were administered without complication. Her bilateral groins were prepped and draped in a sterile fashion. A timeout was performed. An oblique incision was made over the inguinal ligament on the right and carried down to the subcutaneous tissue Bovie cautery. Bridging veins were suture ligated and divided. Continued or dissection inferior to the inguinal ligament down to the femoral sheath. This was opened longitudinally. There was a great deal of scar tissue from previous endovascular procedures. This was carefully dissected and we were able to place Vesseloops around the superficial femoral artery and the profunda artery. We dissected the femoral artery above the circumflex vessels for a femoral clamp. Vesseloops replace from the circumflex vessels. We then turned our attention to the left groin. An oblique incision was made over the inguinal ligament on the left and carried down to the subcutaneous tissue Bovie cautery. Bridging veins were suture ligated and divided. Continued or dissection inferior to the inguinal ligament down to the femoral sheath. This was opened longitudinally. There even more scar tissue noted on the left side from previous endovascular procedures. This was carefully dissected and we were able to place Vesseloops around the superficial femoral artery and the profunda artery. We dissected the femoral artery above the circumflex vessels for a femoral clamp. Vesseloops replace from the circumflex vessels. 5000 units of heparin was given by anesthesia and allowed to circulate. This was continued throughout the case with an additional 1000 units of heparin every hour. A clamp was placed on the left femoral artery and the vessels were secured. An arteriotomy was made longitudinally and continued with a pot scissor. We then carefully elevated the plaque from the vessel, with good end points in the superficial femoral artery in the profunda. Care was taken to remove all loose intima. This plaque was sent for pathology. We irrigated with heparinized saline and a xenosure patch was anastomosed to the arteriotomy with running 5-0 Prolene hemostatic suture. Before the final sutures are placed, we flushed inflow and outflow irrigated with heparinized saline. Flow was restarted good hemostasis was noted. A clamp was placed on the right femoral artery and the vessels were secured. An arteriotomy was made longitudinally and continued with a pot scissor. We then carefully elevated the plaque from the vessel, with good end points in the superficial femoral artery in the profunda. Care was ta jose martin to remove all loose intima. This plaque was sent for pathology. We irrigated with heparinized saline and a xenosure patch was anastomosed to the arteriotomy with running 5-0 Prolene hemostatic suture. Before the final sutures are placed, we flushed inflow and outflow irrigated with heparinized saline. Flow was restarted good hemostasis was noted. A tunnel was created from the left to the right groin and a 6 mm range PTFE graft was tunneled from the left to the right groin. The end of the graft was beveled for anastomosis on the left. Clamps and Vesseloops are resecured on the left groin and an arteriotomy was made in the patch. The graft was anastomosed and an end-to-side fashion with 5-0 Prolene hemostatic suture. A clamp was placed on the graft proximal to the anastomosis and then we flushed the inflow and outflow artery and the final sutures were placed after irrigating with heparinized saline. We then restored flow and good hemostasis was noted. Next, the end of the graft was beveled for tension-free anastomosis on the right. Clamps and Vesseloops were resecured on the right femoral vessels and an arteriotomy was made in the patch. The graft was anastomosed and an end-to-side fashion with 5-0 Prolene hemostatic suture. The clamp was removed at the inflow of the graft to flush it, and then replaced. We flushed the inflow and outflow artery and the final sutures were placed after irrigating with heparinized saline. We then restored flow and good hemostasis was noted. Doppler confirmed good flow through the SFA and profunda bilaterally and good flow through the graft. We irrigated both groins with saline. Local anesthesia was administered to the skin and subcutaneous tissue around both incisions. The deep tissues and the femoral sheath were closed with 2-0 Vicryl suture. The fascia was closed in 2 layers with 2-0 Vicryl suture. The superficial fascia was closed with 3-0 Vicryl suture. The deep dermal layer was approximated with interrupted 3-0 Vicryl suture. The skin was closed with skin. This was done on both incisions left and right. We cleaned both incisions and dressed them with dry gauze and Tegaderm. Both were hemostatic at case close. SPECIMEN: Plaque from the left and right femoral arteries were sent for pathology ESTIMATED BLOOD LOSS: Approximately 75 mL. COMPLICATIONS: None. PLAN: Resume aspirin and Plavix in the morning. Analgesia when necessary. Out of bed starting tomorrow, but bedrest overnight. Okay to shower after 24 hours. Will need dry dressing changes daily. Likely discharge home in 2-3 days depending on progress. We appreciate the opportunity to participate in the care of this patient. AYAKA CASTORENA MD Apr 05, 2020 17:27
[2020-04-05] MEDS ORDERED: HYDROmorphone 2 MG TAB PO PRN (17:30)
[2020-04-05] MEDS ORDERED: ONDANSETRON 4MG/2ML VIAL IV PRN ×2 (17:30→17:45)
[2020-04-05] MEDS ORDERED: PERCOCET 5MG/325MG TAB PO PRN ×2 (17:30→17:45)
[2020-04-05] MEDS ORDERED: fentaNYL 100 MCG/2 ML INJECTION (J3010) IV PRN (17:45)
[2020-04-05] MEDS ORDERED: LR 1,000 ML IV SCH (17:45)
[2020-04-05] MEDS ORDERED: METOCLOPRAMIDE INJ 10MG/2ML VIAL (J2765 PER 1) IV PRN (17:45)
[2020-04-05] MEDS ORDERED: diazePAM 5 MG TAB PO PRN (17:45)
--- NOTE | 2020-04-05 18:37 | HPEPDOC ---
[facility] Medical History & Physical Date of Admission Apr 05, 2020 Date of Service: Apr 05, 2020 History and Physical CHIEF COMPLAINT: Postop management HISTORY OF PRESENT ILLNESS: History could not be obtained as patient is lethargic. In the recovery room postop 65-year-old female with history of severe peripheral vascular disease, dyslipidemia, COPD, ex-smoker, CAD, PA, coronary stents and hypertension with history of right iliac artery occlusion with left iliac artery stenting with persistent Claudication symptoms limiting ADLs, status post [id number] femoral-femoral bypass. Patient had no postoperative complications or significant blood loss. Hospitalist service was asked to admit the patient for observation postop for the next 2-3 days. Patient is not to have any nicotine patch or compression stockings. She is to be bedrest for 24 hours and may be given DVT prophylaxis after 24 hours with anticoagulation. PAST MEDICAL HISTORY: Hypertension CAD/History of PA 2013/cardiac stent 2013 NIDDM Dyslipidemia COPD Chronic back pain DDD Hypercholesterolemia Anxiety Depression Tubal ligation PAST SURGICAL HISTORY: Tubal ligation, cardiac stenting Qrem-lq-oxasv femoral-femoral bypass 04/05/2020 SOCIAL HISTORY: , Tobacco abuse, still smoking. Refuses to quit. No alcohol, recreational drug use FAMILY HISTORY: , Hypertension, diabetes ALLERGIES: Please see below. REVIEW OF SYSTEMS: 10 point review of system could not be obtained as the patient is lethargic HOME MEDICATIONS: Please see below. PHYSICAL EXAMINATION: VITAL SIGNS: See below GENERAL APPEARANCE lethargic, only answers yes or no HEENT: No cervical lymphadenopathy, thyromegaly. Dry mucous membranes CARDIOVASCULAR: S1, S2, sinus rhythm LUNGS: Clear to auscultation. No wheezing or rales ABDOMEN: Positive bowel sounds, soft, nontender, nondistended. Surgical incisions are clean, dry, nonbloody. No serosanguineous drainage EXTREMITIES: Distal pulses dorsalis pedis, posterior tibial was noted by Doppler. No pitting edema NEUROLOGICAL: Lethargic, only answers yes or no questions answers to her name LABORATORY DATA: See below. IMAGING: INDICATION: CLAUDICATION. Atherosclerosis of [place] arteries. Intermittent claudication bilateral legs. Patient is status post left common iliac artery stenting. COMPARISON: Comparison sonography January 07, 2020.. TECHNIQUE: Bilateral lower extremity arterial Doppler sonography. FINDINGS: Ankle-brachial index remains normal on the left at 0.96. It is low on the right and 0.48 essentially unchanged. The left brachial artery blood pressure is lower than the right by 40 mmHg. Questions subclavian stenosis on the left. Relatively slow flow observed in the distal aorta. The right common iliac artery is occluded. Monophasic tardus parvus waveform is seen in the right external iliac artery. An patent left common iliac artery stent. In the right lower extremity, monophasic waveforms are noted with tardus parvus waveforms and decreased peak systolic flow velocities indicating an interval decrement in flow pattern in the right lower extremity generally. No focal stenosis. Increased flow velocities in the left common femoral artery it are observed. Biphasic waveforms are noted through most of the left lower extremity tracings. Right lower extremity arterial Doppler velocity chart: Abdominal aorta PSV 30 cm/S Right IVON occluded Right EIA 17 Right CHUTE FEEDER PSV 58 cm/S Profundal 40 Proximal SFA 49 Mid SFA 46 Distal SFA 45 Popliteal 30 Proximal BERENICE 26 Tibial-peroneal trunk 28 Proximal BLOCK INSPECTOR 27 Distal BLOCK INSPECTOR 20 Distal BERENICE 21 Left lower extremity arterial Doppler velocity chart: Abdominal aorta PSV 30 cm/S Left IVON PSV 140 cm/S Left EIA 131 Left CHUTE FEEDER PSV 201 cm/S Profundal at 1:02 Proximal SFA 123 Mid SFA 136 Distal SFA 123 Popliteal 68 Proximal BERENICE 66 Tibial-peroneal trunk 53 Proximal BLOCK INSPECTOR 47 Distal BLOCK INSPECTOR 38 Distal BERENICE 35 IMPRESSION: Patent left common iliac artery stent. Occlusion right common iliac artery. Interval decrease in flow parameters right lower extremity with tardus parvus arterial waveforms. Improved inflow on the left. Disparate brachial artery pressures question left subclavian stenosis. MICROBIOLOGY: Please see below. ASSESSMENT: 65-year-old female with history of severe peripheral vascular disease, dyslipidemia, COPD, ex-smoker, CAD, PA, coronary stents and hypertension with history of right iliac artery occlusion with left iliac artery stenting with persistent Claudication symptoms limiting ADLs, status post ygbj-ms-aaysv femoral-femoral bypass. Patient had no postoperative complications or significant blood loss. Hospitalist service was asked to admit the patient for observation postop for the next 2-3 days. Patient is not to have any nicotine patch or compression stockings. She is to be bedrest for 24 hours and may be given DVT prophylaxis after 24 hours with anticoagulation. Atherosclerotic disease, bilateral lower extremity, status post wwjr-pt-qdanv femoral-femoral bypass Active tobacco abuse. Refuses to quit . Acute encephalopathy secondary to anesthesia Hypertension CAD/History of PA 2013/cardiac stent 2013 NIDDM Dyslipidemia COPD Chronic back pain DDD Hypercholesterolemia Anxiety Depression PLAN: , No nicotine patches. This is cause vasospasms and decreased flow, especially and bypassed vessels. Patient is to be bedrest for the next 24 hours postop management per vascular surgery. Patient is not to have any or oral or subcutaneous and coagulation for the first 24 hours. She has received antiplatelet therapy with aspirin and Plavix. We can do subcutaneous Lovenox and heparin after 24 hours postop. Patient remains lethargic postoperatively. We'll check an ABG and ammonia level at this time. Patient will be monitored on a [facility] floor. Vital Signs Vital Signs Date Time Temp Pulse Resp B/P (MAP) Pulse Ox O2 Delivery O2 Flow Rate FiO2 04/05/20 18:05 96.2 84 16 102/66 (78) 91 Nasal Cannula 2.0 Laboratory Data Labs 24H Laboratory Tests 2 04/05/20 10:19: Nucleated Red Blood Cells % (auto) 0.0, Prothrombin Time 13.3, Prothromb Time International Ratio 0.99, Activated Partial Thromboplast Time 26.6, Anion Gap 4L, Glomerular Filtration Rate > 60.0, Calcium Level 9.9 04/05/20 11:03: Bedside Glucose (Misc Panel) 184H 04/05/20 17:19: Bedside Glucose (Misc Panel) 243H CBC/BMP Laboratory Tests 04/05/20 10:19 Home Medications Scheduled Aspirin (Aspirin) 81 Mg Tab.chew, 81 MG PO DAILY for pain Baclofen (Baclofen) 10 Mg Tablet, 10 MG PO TID Budesonide/Formoterol (Symbicort 160-4.5 Mcg Inhaler) 6 Gm Hfa.aer.ad, 2 PUFF INH BID Clopidogrel Bisulfate (Clopidogrel) 75 Mg Tablet, 75 MG PO DAILY Duloxetine Hcl (Duloxetine HCl) 60 Mg Capsule.dr, 60 MG PO DAILY Furosemide (Furosemide) 20 Mg Tablet, 20 MG PO DAILY Gabapentin (Gabapentin) 800 Mg Tablet, 800 MG PO TID Glipizide (Glipizide ER) 5 Mg Tab.er.24, 1 TAB PO DAILY Lisinopril (Lisinopril) 5 Mg Tablet, 5 MG PO DAILY Meloxicam (Meloxicam) 7.5 Mg Tablet, 1 TAB PO DAILY Metformin HCl (Metformin HCl) 1,000 Mg Tablet, 1,000 MG PO BID Metoprolol Tartrate (Metoprolol Tartrate) 75 Mg Tablet, 75 MG PO BID Simvastatin (Simvastatin) 40 Mg Tablet, 40 MG PO DAILY Scheduled PRN Tramadol HCl (Tramadol HCl) 50 Mg Tablet, 50 MG PO TIDP PRN for pain Miscellaneous Medications Albuterol Sulf (Albuterol Sulfate) 2.5 Mg/3 Ml Vial.neb, 2.5 MG INH Allergies Coded Allergies: [place] (Verified Allergy, Intermediate, 04/05/20) Contrast Media (Verified Allergy, Intermediate, vomiting and difficulty breathing, 03/22/20) A-FIB/CHADSVASC A-FIB History Current/History of A-Fib/PAF?: No Current PO Anticoag Therapy: No Age/Risk Factor Scoring CHADSVASC: CHADSVASC Response (Comments) Value Age Risk Factor Age < 65 years old 0 Hx of CHF No 0 Hx of HTN Yes 1 Hx of Stroke/TIA/or VTE No 0 Hx of Diabetes Yes 1 Hx of Vascular Disease Yes 1 Total 3 NATACHA CUI MD Apr 05, 2020 18:37
[2020-04-05 18:45] LABS: ABG BASE EXCESS -1.1 (-2.0-2.0); ABG HCO3 24.6 MEQ/L (22.0-26.0); ABG O2 SATURATION 97.2 % (95.0-99.0); ABG PARTIAL PRESSURE CO2 44.9 mmHg (35.0-45.0); ABG PARTIAL PRESSURE O2 94.4 mmHg (75.0-100.0); ABG STANDARD HCO3 23.6 MEQ/L (22.0-26.0); ABG pH (ARTERIAL) 7.357 UNITS (7.350-7.450)
[2020-04-05] MEDS ORDERED: DEXTROSE 50% 50 ML SYRINGE IV PRN (18:45)
[2020-04-05] MEDS ORDERED: GLUCAGON INJ 1MG VIAL SC PRN (18:45)
[2020-04-05] MEDS ORDERED: GLUCOSE 4GM CHEW TABLET PO PRN (18:45)
[2020-04-05] MEDS: HumaLOG INSULIN (NovoLOG) PER UNIT SC SCH (21:00)
[2020-04-06 02:00] VITALS: BP 122/62
[2020-04-06 06:00] VITALS: BP 124/58
[2020-04-06 06:14] LABS: HEMOGLOBIN A1c 7.4 %
[2020-04-06 06:25] LABS: BLOOD UREA NITROGEN 11 MG/DL (7-18); CALCIUM LEVEL 8.9 MG/DL (8.8-10.2); CARBON DIOXIDE LEVEL 27 MEQ/L (21-32); CHLORIDE LEVEL 107 MEQ/L (98-107); CHOLESTEROL LEVEL 93 MG/DL (<200); CHOLESTEROL RISK RATIO 2.325 (<5); CREATININE FOR GFR 0.56 MG/DL (0.55-1.30); GLOMERULAR FILTRATION RATE > 60.0 (>45); GLUCOSE, FASTING 134 MG/DL (70-100); HDL CHOLESTEROL 40 MG/DL (>40); LDL CHOLESTEROL 19 MG/DL (<100); NON-HDL-C 53 MG/DL; POTASSIUM SERUM 3.8 MEQ/L (3.5-5.1); SODIUM LEVEL 141 MEQ/L (136-145); TRIGLYCERIDES LEVEL 171 MG/DL (<150)
[2020-04-06 06:26] LABS: BASO # 0.1 10^3/uL (0.0-0.2); BASO % 0.6 % (0.0-1.0); EOS % 0.2 % (0.0-3.0); HEMATOCRIT 39.9 % (36.0-47.0); HEMOGLOBIN 12.7 g/dl (12.0-15.5); LYMPH # 2.8 10^3/uL (1.5-5.0); LYMPH % 23.5 % (24.0-44.0); MEAN CORPUSCULAR HEMOGLOBIN 29.5 pg (27.0-33.0); MEAN CORPUSCULAR HGB CONC 31.8 g/dl (32.0-36.5); MEAN CORPUSCULAR VOLUME 92.6 fl (80.0-96.0); MONO % 8.3 % (0.0-5.0); NEUTROPHILS # 8.1 10^3/uL (1.5-8.5); PLATELET COUNT, AUTOMATED 189 10^3/uL (150-450); RED BLOOD COUNT 4.31 10^6/uL (4.00-5.40); WHITE BLOOD COUNT 12.1 10^3/uL (4.0-10.0)
[2020-04-06] MEDS: ASPIRIN 81 MG ENTERIC TAB PO SCH (08:28)
[2020-04-06] MEDS: CLOPIDOGREL 75 MG TAB PO SCH (08:28)
[2020-04-06] MEDS: HumaLOG INSULIN (NovoLOG) PER UNIT SC SCH ×4 (08:29→20:16)
[2020-04-06] MEDS ORDERED: diazePAM 5 MG TAB PO ONE (09:45)
[2020-04-06 10:00] VITALS: BP 146/61
--- NOTE | 2020-04-06 12:18 | IPNPDOC ---
Date Seen The patient was seen on 04/06/20. Progress Note SUBJECTIVE: c/o b/l le pain in feet. has chronic neuropathy, but very sensitive to touch. no c/o bleeding in incision site. requesting pain meds. PHYSICAL EXAMINATION: VITAL SIGNS: See below GENERAL APPEARANCE : anxious. HEENT: No cervical lymphadenopathy, thyromegaly. Dry mucous membranes CARDIOVASCULAR: S1, S2, sinus rhythm LUNGS: Clear to auscultation. No wheezing or rales ABDOMEN: Positive bowel sounds, soft, nontender, nondistended. Surgical incisions are clean, dry, nonbloody. No serosanguineous drainage EXTREMITIES: Distal pulses dorsalis pedis, posterior tibial palpable. pink and warm to touch. hyperaesthetic b/l feet NEUROLOGICAL: Lethargic, only answers yes or no questions answers to her name LABORATORY DATA: See below. IMAGING: INDICATION: CLAUDICATION. Atherosclerosis of [place] arteries. Intermittent claudication bilateral legs. Patient is status post left common iliac artery stenting. COMPARISON: Comparison sonography January 07, 2020.. TECHNIQUE: Bilateral lower extremity arterial Doppler sonography. FINDINGS: Ankle-brachial index remains normal on the left at 0.96. It is low on the right and 0.48 essentially unchanged. The left brachial artery blood pressure is lower than the right by 40 mmHg. Questions subclavian stenosis on the left. Relatively slow flow observed in the distal aorta. The right common iliac artery is occluded. Monophasic tardus parvus waveform is seen in the right external iliac artery. An patent left common iliac artery stent. In the right lower extremity, monophasic waveforms are noted with tardus parvus waveforms and decreased peak systolic flow velocities indicating an interval decrement in flow pattern in the right lower extremity generally. No focal stenosis. Increased flow velocities in the left common femoral artery it are observed. Biphasic waveforms are noted through most of the left lower extremity tracings. Right lower extremity arterial Doppler velocity chart: Abdominal aorta PSV 30 cm/S Right IVON occluded Right EIA 17 Right CANT GANG SAWYER PSV 58 cm/S Profundal 40 Proximal SFA 49 Mid SFA 46 Distal SFA 45 Popliteal 30 Proximal BERENICE 26 Tibial-peroneal trunk 28 Proximal CORRECTIONAL SERGEANT 27 Distal CORRECTIONAL SERGEANT 20 Distal BERENICE 21 Left lower extremity arterial Doppler velocity chart: Abdominal aorta PSV 30 cm/S Left IVON PSV 140 cm/S Left EIA 131 Left CANT GANG SAWYER PSV 201 cm/S Profundal at 1:02 Proximal SFA 123 Mid SFA 136 Distal SFA 123 Popliteal 68 Proximal BERENICE 66 Tibial-peroneal trunk 53 Proximal CORRECTIONAL SERGEANT 47 Distal CORRECTIONAL SERGEANT 38 Distal BERENICE 35 IMPRESSION: Patent left common iliac artery stent. Occlusion right common iliac artery. Interval decrease in flow parameters right lower extremity with tardus parvus arterial waveforms. Improved inflow on the left. Disparate brachial artery pressures question left subclavian stenosis. MICROBIOLOGY: Please see below. ASSESSMENT: 65-year-old female with history of severe peripheral vascular disease, dyslipidemia, COPD, ex-smoker, CAD, VT, coronary stents and hypertension with history of right iliac artery occlusion with left iliac artery stenting with persistent Claudication symptoms limiting ADLs, status post [id number] femoral-femoral bypass. Patient had no postoperative complications or significant blood loss. Hospitalist service was asked to admit the patient for observation postop for the next 2-3 days. Patient is not to have any nicotine patch or compression stockings. She is to be bedrest for 24 hours and may be given DVT prophylaxis after 24 hours with anticoagulation. Atherosclerotic disease, bilateral lower extremity, status post kkku-gx-vjqss femoral-femoral bypass Active tobacco abuse. Refuses to quit . Acute encephalopathy secondary to anesthesia Hypertension CAD/History of [place] 2013/cardiac stent 2013 NIDDM Dyslipidemia COPD Chronic back pain DDD Hypercholesterolemia Anxiety Depression PLAN: post op management per vascular surgery. on prn pain meds. on asa and plavix.ok to start on sq lovenox today per vascular. had been 24hrs bedrest. will defer to surgery for activity. resumed on home meds. total of 2-3days inpt . no signs of bleeding. valium prn. NO NICOTINE PATCH-CAN CLOSE THE GRAFTS. VS, I&O, 24H, Fishbone Vital Signs/I&O Vital Signs Date Time Temp Pulse Resp B/P (MAP) Pulse Ox O2 Delivery O2 Flow Rate FiO2 04/06/20 10:00 97.8 83 18 146/61 (89) 99 Nasal Cannula 2.0 I&O- Last 24 Hours up to 6 AM 04/06/20 06:00 Intake Total 2500 ml Output Total 1895 ml Balance 605 ml Laboratory Data 24H LABS Laboratory Tests 2 04/05/20 17:19: Bedside Glucose (Misc Panel) 243H 04/05/20 18:36: Blood Gas Bicarbonate Standard 23.6, Arterial Blood pH 7.357, Arterial Blood Par tial Pressure CO2 44.9, Arterial Blood Partial Pressure O2 94.4, Arterial Blood Total CO2 26.0, Arterial Blood HCO3 24.6, Arterial Blood Base Excess -1.1, Arterial Blood Oxygen Saturation 97.2 04/05/20 19:09: Ammonia 30 04/05/20 20:23: Bedside Glucose (Misc Panel) 182H 04/06/20 05:40: Immature Granulocyte % (Auto) 0.4, Neutrophils (%) (Auto) 67.0H, Lymphocytes (%) (Auto) 23.5L, Monocytes (%) (Auto) 8.3H, Eosinophils (%) (Auto) 0.2, Basophils (%) (Auto) 0.6, Neutrophils # (Auto) 8.1, Lymphocytes # (Auto) 2.8, Monocytes # (Auto) 1.0H, Eosinophils # (Auto) 0.0, Basophils # (Auto) 0.1, Nucleated Red Blood Cells % (auto) 0.0, Anion Gap 7L, Glomerular Filtration Rate > 60.0, Estimated Mean Plasma Glucose 166H, Hemoglobin A1c 7.4, Calcium Level 8.9, Triglycerides Level 171H, Total Cholesterol 93, LDL Cholesterol 19, Non-HDL Cholesterol (LDL + VLDL) 53, Total HDL Cholesterol 40, Cholesterol/HDL Ratio 2.325 04/06/20 11:43: Bedside Glucose (Misc Panel) 204H CBC/BMP Laboratory Tests 04/06/20 05:40 NATACHA CUI MD Apr 06, 2020 12:18
[2020-04-06 14:00] VITALS: BP 124/58
[2020-04-06 18:00] VITALS: BP 132/74
[2020-04-06] MEDS: GABAPENTIN 400 MG CAP PO SCH (20:15)
[2020-04-06] MEDS: PERCOCET 5MG/325MG TAB PO PRN (20:16)
[2020-04-06 22:00] VITALS: BP 138/78
[2020-04-07 06:00] VITALS: BP 112/59
[2020-04-07 06:38] LABS: BASO # 0.1 10^3/uL (0.0-0.2); BASO % 0.4 % (0.0-1.0); EOS # 0.1 10^3/uL (0.0-0.5); EOS % 0.4 % (0.0-3.0); HEMOGLOBIN 12.6 g/dl (12.0-15.5); LYMPH # 2.3 10^3/uL (1.5-5.0); LYMPH % 20.1 % (24.0-44.0); MEAN CORPUSCULAR HGB CONC 32.3 g/dl (32.0-36.5); MEAN CORPUSCULAR VOLUME 92.9 fl (80.0-96.0); MONO # 1.1 10^3/uL (0.0-0.8); MONO % 9.7 % (0.0-5.0); NEUTROPHILS # 7.8 10^3/uL (1.5-8.5); PLATELET COUNT, AUTOMATED 178 10^3/uL (150-450); WHITE BLOOD COUNT 11.4 10^3/uL (4.0-10.0)
[2020-04-07 07:00] LABS: BLOOD UREA NITROGEN 11 MG/DL (7-18); CALCIUM LEVEL 8.9 MG/DL (8.8-10.2); CARBON DIOXIDE LEVEL 26 MEQ/L (21-32); CHLORIDE LEVEL 108 MEQ/L (98-107); CREATININE FOR GFR 0.54 MG/DL (0.55-1.30); GLOMERULAR FILTRATION RATE > 60.0 (>45); GLUCOSE, FASTING 189 MG/DL (70-100); POTASSIUM SERUM 3.5 MEQ/L (3.5-5.1); SODIUM LEVEL 141 MEQ/L (136-145)
[2020-04-07] MEDS: PERCOCET 5MG/325MG TAB PO PRN ×2 (07:00→12:44)
[2020-04-07] MEDS: HumaLOG INSULIN (NovoLOG) PER UNIT SC SCH ×2 (08:26→12:45)
[2020-04-07] MEDS: CLOPIDOGREL 75 MG TAB PO SCH (08:27)
[2020-04-07] MEDS: GABAPENTIN 400 MG CAP PO SCH (08:27)
[2020-04-07] MEDS: ASPIRIN 81 MG ENTERIC TAB PO SCH (08:27)
--- NOTE | 2020-04-07 11:14 | IPNPDOC ---
Date Seen The patient was seen on 04/07/20. Progress Note Pt seen and examined s/p B [employer] endarterectomies and left to right fem-fem bypass. Doing well. Walking to the BR, but has not yet walked in the halls. Neuropathy BLE is a bit worse now that she has blood flow and warm hyperemic feet, but this is expected as additional nerves tend to "wake up" once blood flow improves. This tends to improve somewhat over the next month, but improved blood flow does not cure neuropathy, and I had discussed this with the patient pre-op. Despite this neuropathic pain and c/o chronic back pain, the patient says her incisional pain is tolerable and her overall pain is controlled well enough to go home. She is requesting D/c home today. I think this is fine if she can ambulate in the [place]. I asked the RN to ambulate her. If she doesn't do well, may need a PT/OT consult for home safety eval, but hopefully she will do fine. D/c instructions for vascular: F/u in clinic in 1 week to check incisions then in 2 weeks to remove kiran. Groin incisions_ shower daily with dressings off, pat dry incisions with clean towel, swipe over kiran with alcohol prep pad, dry 4x4, paper tape. Try to wear cotton underwear and loose cotton clothing until healed. No lifting >5-10lbs, no strenuous exercise for 2 weeks. Ok for ambulation, light activity, stairs, as tolerated. Eat plenty of protein to help with healing incisions. We appreciate the hospitalist team's excellent care of this patient. VS, I&O, 24H, Anitha Vital Signs/I&O Vital Signs Date Time Temp Pulse Resp B/P (MAP) Pulse Ox O2 Delivery O2 Flow Rate FiO2 04/07/20 08:27 17 04/07/20 06:00 98.5 72 112/59 (76) 98 Room Air 04/06/20 22:00 I&O- Last 24 Hours up to 6 AM 04/07/20 05:59 Intake Total 900 ml Output Total 2650 ml Balance -1750 ml Laboratory Data 24H LABS Laboratory Tests 2 04/06/20 11:43: Bedside Glucose (Misc Panel) 204H 04/06/20 16:35: Bedside Glucose (Misc Panel) 309H 04/06/20 20:14: Bedside Glucose (Misc Panel) 196H 04/07/20 06:08: Immature Granulocyte % (Auto) 0.4, Neutrophils (%) (Auto) 69.0H, Lymphocytes (%) (Auto) 20.1L, Monocytes (%) (Auto) 9.7H, Eosinophils (%) (Auto) 0.4, Basophils (%) (Auto) 0.4, Neutrophils # (Auto) 7.8, Lymphocytes # (Auto) 2.3, Monocytes # (Auto) 1.1H, Eosinophils # (Auto) 0.1, Basophils # (Auto) 0.1, Nucleated Red Blood Cells % (auto) 0.0, Anion Gap 7L, Glomerular Filtration Rate > 60.0, Calcium Level 8.9 CBC/BMP Laboratory Tests 04/07/20 06:08 CEDRIC NDIAYE MD Apr 07, 2020 11:14
[2020-04-07] MEDS ORDERED: PERCOCET PO (11:45)
[2020-04-07] MEDS ORDERED: CLOP75TA2 PO (11:45)
--- NOTE | 2020-04-07 11:51 | DS.PDOC ---
Discharge Summary General Date of Admission Apr 05, 2020 at 09:43 Date of Discharge 04/07/20 Discharge Summary DISCHARGE DIAGNOSES: Atherosclerotic disease, bilateral lower extremity, status post [id number] femoral-femoral bypass Active tobacco abuse. Refuses to quit . Acute encephalopathy secondary to anesthesia Hypertension CAD/History of VT 2013/cardiac stent 2013 NIDDM Dyslipidemia COPD Chronic back pain DDD Hypercholesterolemia Anxiety Depression DISCHARGE MEDICATIONS: See below DISCHARGE INSTRUCTIONS: Activity, wound care and follow-up with vascular surgery per Dr. COLE rubi ND. Primary care physician within one week of discharge DRYWALL SANDER: VASCULAR SURGERYDR. JAMIL PROCEDURES: DATE OF PROCEDURE: 04/05/20 PREPROCEDURE DIAGNOSES: Atherosclerosis of the arteries with lifestyle limiting claudication POSTPROCEDURE DIAGNOSES: Same PROCEDURE: 1. Bilateral common femoral endarterectomies with patch angioplasty 2. 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 Patient had no postoperative complications or significant blood loss. Hospitalist service was asked to admit the patient for observation postop for the next 2-3 days. Patient was not to have any nicotine patch or compression stockings. She was to be bedrest for 24 hours and may be given DVT prophylaxis after 24 hours with anticoagulation.post op management per vascular surgery. on prn pain meds. on asa and plavix.She had been 24hrs bedrest and stable.She was resumed on home meds. no signs of bleeding. valium prn. NO NICOTINE PATCH-CAN CLOSE THE GRAFTS. Patient is to follow-up O surgery as outpatient as recommended. DISCHARGE PHYSICAL EXAMINATION: VITAL SIGNS: See below GENERAL APPEARANCE : anxious. HEENT: No cervical lymphadenopathy, thyromegaly. Dry mucous membranes CARDIOVASCULAR: S1, S2, sinus rhythm LUNGS: Clear to auscultation. No wheezing or rales ABDOMEN: Positive bowel sounds, soft, nontender, nondistended. Surgical incisions are clean, dry, nonbloody. No serosanguineous drainage EXTREMITIES: Distal pulses dorsalis pedis, posterior tibial palpable. pink and warm to touch. hyperaesthetic b/l feet NEUROLOGICAL: Lethargic, only answers yes or no questions answers to her name LABORATORY DATA: See below. IMAGING: INDICATION: CLAUDICATION. Atherosclerosis of [place] arteries. Intermittent claudication bilateral legs. Patient is status post left common iliac artery stenting. COMPARISON: Comparison sonography January 07, 2020.. TECHNIQUE: Bilateral lower extremity arterial Doppler sonography. FINDINGS: Ankle-brachial index remains normal on the left at 0.96. It is low on the right and 0.48 essentially unchanged. The left brachial artery blood pressure is lower than the right by 40 mmHg. Questions subclavian stenosis on the left. Relatively slow flow observed in the distal aorta. The right common iliac artery is occluded. Monophasic tardus parvus waveform is seen in the right external iliac artery. An patent left common iliac artery stent. In the right lower extremity, monophasic waveforms are noted with tardus parvus waveforms and decreased peak systolic flow velocities indicating an interval decrement in flow pattern in the right lower extremity generally. No focal stenosis. Increased flow velocities in the left common femoral artery it are observed. Biphasic waveforms are noted through most of the left lower extremity tracings. Right lower extremity arterial Doppler velocity chart: Abdominal aorta PSV 30 cm/S Right IVON occluded Right EIA 17 Right BUSINESS LOAN PROCESSOR PSV 58 cm/S Profundal 40 Proximal SFA 49 Mid SFA 46 Distal SFA 45 Popliteal 30 Proximal BERENICE 26 Tibial-peroneal trunk 28 Proximal HEAD OF BUSINESS DEVELOPMENT 27 Distal HEAD OF BUSINESS DEVELOPMENT 20 Distal BERENICE 21 Left lower extremity arterial Doppler velocity chart: Abdominal aorta PSV 30 cm/S Left IVON PSV 140 cm/S Left EIA 131 Left BUSINESS LOAN PROCESSOR PSV 201 cm/S Profundal at 1:02 Proximal SFA 123 Mid SFA 136 Distal SFA 123 Popliteal 68 Proximal BERENICE 66 Tibial-peroneal trunk 53 Proximal HEAD OF BUSINESS DEVELOPMENT 47 Distal HEAD OF BUSINESS DEVELOPMENT 38 Distal BERENICE 35 IMPRESSION: Patent left common iliac artery stent. Occlusion right common iliac artery. Interval decrease in flow parameters right lower extremity with tardus parvus arterial waveforms. Improved inflow on the left. Disparate brachial artery pressures question left subclavian stenosis. MICROBIOLOGY: Please see below. TIME SPENT IN DISCHARGE: 30 MINUTES Vital Signs/I&Os Vital Signs Date Time Temp Pulse Resp B/P (MAP) Pulse Ox O2 Delivery O2 Flow Rate FiO2 04/07/20 08:27 17 04/07/20 06:00 98.5 72 112/59 (76) 98 Room Air 04/06/20 22:00 l I&O- Last 24 Hours up to 6 AM 04/07/20 06:00 Intake Total 900 ml Output Total 2450 ml Balance -1550 ml Laboratory Data Labs 24H Laboratory Tests 2 04/06/20 16:35: Bedside Glucose (Misc Panel) 309H 04/06/20 20:14: Bedside Glucose (Misc Panel) 196H 04/07/20 06:08: Immature Granulocyte % (Auto) 0.4, Neutrophils (%) (Auto) 69.0H, Lymphocytes (%) (Auto) 20.1L, Monocytes (%) (Auto) 9.7H, Eosinophils (%) (Auto) 0.4, Basophils (%) (Auto) 0.4, Neutrophils # (Auto) 7.8, Lymphocytes # (Auto) 2.3, Monocytes # (Auto) 1.1H, Eosinophils # (Auto) 0.1, Basophils # (Auto) 0.1, Nucleated Red Blood Cells % (auto) 0.0, Anion Gap 7L, Glomerular Filtration Rate > 60.0, Calcium Level 8.9 04/07/20 11:26: Bedside Glucose (Misc Panel) 278H CBC/BMP Laboratory Tests 04/07/20 06:08 FSBS Laboratory Tests Test 04/06/20 16:35 04/06/20 20:14 04/07/20 11:26 Range/Units Bedside Glucose (Misc Panel) 309 196 278 80-115 MG/DL Discharge Medications Scheduled Aspirin (Aspirin) 81 Mg Tab.chew, 81 MG PO DAILY for pain, (Reported) Baclofen (Baclofen) 10 Mg Tablet, 10 MG PO TID, (Reported) Budesonide/Formoterol (Symbicort 160-4.5 Mcg Inhaler) 6 Gm Hfa.aer.ad, 2 PUFF INH BID, (Reported) Clopidogrel Bisulfate (Clopidogrel) 75 Mg Tablet, 75 MG PO DAILY Clopidogrel Bisulfate (Clopidogrel) 75 Mg Tablet, 75 MG PO DAILY Duloxetine Hcl (Duloxetine HCl) 60 Mg Capsule.dr, 60 MG PO DAILY, (Reported) Furosemide (Furosemide) 20 Mg Tablet, 20 MG PO DAILY, (Reported) Gabapentin (Gabapentin) 800 Mg Tablet, 800 MG PO TID, (Reported) Glipizide (Glipizide ER) 5 Mg Tab.er.24, 1 TAB PO DAILY, (Reported) Lisinopril (Lisinopril) 5 Mg Tablet, 5 MG PO DAILY, (Reported) Meloxicam (Meloxicam) 7.5 Mg Tablet, 1 TAB PO DAILY, (Reported) Metformin HCl (Metformin HCl) 1,000 Mg Tablet, 1,000 MG PO BID, (Reported) Metoprolol Tartrate (Metoprolol Tartrate) 75 Mg Tablet, 75 MG PO BID, (Reported) Simvastatin (Simvastatin) 40 Mg Tablet, 40 MG PO DAILY, (Reported) Scheduled PRN Oxycodone/Acetaminophen (Oxycodone-Acetaminophen 5-325) 1 Each Tablet, 1-2 TAB PO Q4HP PRN for SEVERE PAIN (PS 8-10) Tramadol HCl (Tramadol HCl) 50 Mg Tablet, 50 MG PO TIDP PRN for pain, (Reported) Miscellaneous Medications Albuterol Sulf (Albuterol Sulfate) 2.5 Mg/3 Ml Vial.neb, 2.5 MG INH, (Reported) Allergies Coded Allergies: [place] (Verified Allergy, Intermediate, 04/05/20) Contrast Media (Verified Allergy, Intermediate, vomiting and difficulty breathing, 03/22/20) NATACHA CUI MD Apr 07, 2020 11:51
== END 2020-04-07 15:13 | disposition home or self-care (01) | DRG 181 ==
LOC: M OR 04-05 09:43 → M MSPAV 04-05 18:02
PROVIDERS: ADMIT Surgery Vascular Surgery; ATTEND General Practice
PROC: 04CK0ZZ Extirpation of Matter from Right Femoral Artery, Open Approach (ICD-10-PCS; 2020-04-05)
PROC: 041L0JH Bypass Left Femoral Artery to Right Femoral Artery with Synthetic Substitute, Open Approach (ICD-10-PCS; 2020-04-05)
PROC: 04UL0KZ Supplement Left Femoral Artery with Nonautologous Tissue Substitute, Open Approach (ICD-10-PCS; 2020-04-05)
PROC: 04UK0KZ Supplement Right Femoral Artery with Nonautologous Tissue Substitute, Open Approach (ICD-10-PCS; 2020-04-05)
PROC: 04CL0ZZ Extirpation of Matter from Left Femoral Artery, Open Approach (ICD-10-PCS; principal; 2020-04-05 11:00)
DX: I70.211 Atherosclerosis of native arteries of extremities with intermittent claudication, right leg (principal); G92 Toxic encephalopathy; E11.51 Type 2 diabetes mellitus with diabetic peripheral angiopathy without gangrene; I10 Essential (primary) hypertension; I25.10 Atherosclerotic heart disease of native coronary artery without angina pectoris; I25.2 Old myocardial infarction; E78.5 Hyperlipidemia, unspecified; J44.9 Chronic obstructive pulmonary disease, unspecified; E78.00 Pure hypercholesterolemia, unspecified; T41.0X5A Adverse effect of inhaled anesthetics, initial encounter; F41.9 Anxiety disorder, unspecified; F32.9 Major depressive disorder, single episode, unspecified; E11.42 Type 2 diabetes mellitus with diabetic polyneuropathy; F17.200 Nicotine dependence, unspecified, uncomplicated; Z95.5 Presence of coronary angioplasty implant and graft; Z79.82 Long term (current) use of aspirin; Z79.02 Long term (current) use of antithrombotics/antiplatelets; Z79.84 Long term (current) use of oral hypoglycemic drugs; Z79.899 Other long term (current) drug therapy; Z91.041 Radiographic dye allergy status

== ENCOUNTER → 2020-03-31 | Outpatient (CLI) | payer OTHER | LOC: M LABSMTC 10:08 | PROVIDERS: ATTEND Anesthesiology | DX: Z01.812 Encounter for preprocedural laboratory examination (principal); Z20.828 Contact with and (suspected) exposure to other viral communicable diseases ==

== ENCOUNTER → 2020-06-01 | Outpatient (CLI) | payer OTHER ==
[~2020-06-01] MED LIST changes: +GLIP5TAB20 PO; -LISI-542 PO; +LISI-898 PO; +MELO7.5T35 PO; +PERCOCET PO
--- NOTE | 2020-06-07 11:35 | REP ---
INDICATION: ATHSCL [place] ARTERIES OF EXTRM W INTRMT ESHA, BI LEGS COMPARISON: 02/25/2020 TECHNIQUE: Real time hart scale and color Doppler evaluation of the bilateral lower extremity arterial vasculature using linear high frequency transducer. FINDINGS: There is evidence for occlusion involving the proximal right common iliac artery with reversed revascularization to the right external iliac artery from the femoral-femoral bypass graft. Femoral-femoral bypass graft is identified and demonstrates monophasic arterial wave pattern. The left-sided anastomosis peak systolic velocity measures at 197 cm/sec while the mid graft velocity measures at 161 cm/sec and the right-sided anastomosis peak systolic velocity measures at 189 cm/sec. Moderate to significant bilateral atheromatous plaquing is again appreciated along with diffuse bilateral monophasic wave patterns. There is 3:1 stenosis at the level of the right proximal anterior tibial artery and 4:1 stenosis at the left proximal anterior tibial artery along with moderate stenosis at the origin of the left superficial femoral artery. Remainder of the bilateral lower extremities demonstrate scattered areas of luminal narrowing. In comparison with prior examination the left lower extremity demonstrates progressive areas of stenosis. Asymmetric pressures are noted to the bilateral brachial arteries (right greater than left). Right FRANK: 0.86 Left FRANK: 0.86 Peak systolic velocities (cm/sec) Common femoral artery: Right 152; Left 231 Profunda femoris: Right 66; Left 340 SFA (proximal): Right 157; Left 379 SFA (mid): Right 180; Left 141 SFA (distal): Right 129; Left 122 Popliteal artery: Right 91; Left 89 BERENICE (prox.): Right 74/205; Left 51/255 Tibioperoneal trunk: Right 87; Left 66 SHIP'S ENGINEER (prox.): Right 127; Left 93 SHIP'S ENGINEER (distal): Right 76; Left 65 BERENICE (distal): Right 68; Left 62 IMPRESSION: Bilateral lower extremity vascular disease as described above Occlusion to the proximal right common iliac artery with subsequent revascularization Patent fem-fem bypass graft Further findings as described above <Electronically signed by Albert Phan > 06/07/20 1366
== END ==
LOC: M RAD 10:26
PROVIDERS: ATTEND Physician Assistant
DX: I70.213 Atherosclerosis of native arteries of extremities with intermittent claudication, bilateral legs (principal); I74.5 Embolism and thrombosis of iliac artery; Z95.828 Presence of other vascular implants and grafts

== ENCOUNTER → 2021-11-19 | Outpatient (CLI) | payer OTHER ==
[~2021-11-19] MED LIST changes: +ALBU2.5V10 INH; -ALBU83IN INH; -LISI-898 PO; +LISI5TAB11 PO
== END ==
LOC: M RAD 14:46
PROVIDERS: ATTEND Surgery
DX: I73.9 Peripheral vascular disease, unspecified (principal)

== ENCOUNTER → 2021-12-31 | Outpatient (CLI) | payer OTHER ==
[~2021-12-31] MED LIST changes: +METO1TAB7 PO
== END ==
LOC: M LABSMTC 11:09
PROVIDERS: ATTEND Anesthesiology
DX: Z01.818 Encounter for other preprocedural examination (principal); Z11.52 Encounter for screening for COVID-19

== ENCOUNTER 2022-01-02 10:32 | Day surgery (SDC) | payer OTHER ==
[~2022-01-02] VITALS: Ht 170.2 cm; Wt 81.6 kg
[~2022-01-02 10:32] MED LIST changes: +BSS IRRIG/VANCO(10MG)/TOBRA(5MG)/EPINEPH(1:1000-0.5CC)500ML BAG-ORONLY IR ONE; +CEFUROXIME 1MG/0.1ML INTRACAMERAL INJ As Ordered ONE; +CYCLOPENTOLATE 1% OPHTH SOLN 2 ML BTL OD SCH; +LIDOCAINE 1% SDV 5ML VIAL As Ordered ONE; +LIDOCAINE 3.5 % 1ML OPHTH TOPICAL GEL OU ONE; +OFLOXACIN 0.3 % (OCUFLOX) OPTH SOL 5ML OD ONE; +PHENYLEPHRINE 2.5% OPHTH SOL 2ML OD SCH; +PHENYLEPHRINE HCL 10 % OPHTH. SOL 5ML OD PRN; +TROPICAMIDE 1% OPHTH SOLN 2ML OD SCH
[2022-01-02] MEDS ORDERED: MIDAZOLAM INJ 2MG/2ML VIAL (J2250 PER 1MG) As Ordered ONE (11:26)
[2022-01-02] MEDS ORDERED: fentaNYL 100 MCG/2 ML INJECTION As Ordered ONE (11:27)
[2022-01-02] MEDS ORDERED: ACETAMINOPHEN 325 MG TAB PO PRN (13:00)
[2022-01-02] MEDS ORDERED: ONDANSETRON 4MG TAB PO PRN (13:00)
[2022-01-02] MEDS ORDERED: acetaZOLAMIDE 500MG ER CAP PO ONE (13:00)
[2022-01-02 13:15] VITALS: BP 139/73
== END 2022-01-02 13:18 | disposition home or self-care (01) ==
LOC: M SDC 10:32
PROVIDERS: ATTEND Ophthalmology
DX: H25.11 Age-related nuclear cataract, right eye (principal); I50.9 Heart failure, unspecified; I25.2 Old myocardial infarction; Z98.61 Coronary angioplasty status; E11.9 Type 2 diabetes mellitus without complications; Z86.73 Personal history of transient ischemic attack (TIA), and cerebral infarction without residual deficits; Z79.02 Long term (current) use of antithrombotics/antiplatelets; I11.9 Hypertensive heart disease without heart failure; Z79.84 Long term (current) use of oral hypoglycemic drugs; Z91.018 Allergy to other foods; Z91.041 Radiographic dye allergy status
CPT/HCPCS: 66984; J0697; J2250; J3010; V2632

== ENCOUNTER 2022-01-30 12:18 | Day surgery (SDC) | payer OTHER ==
[~2022-01-30] VITALS: Ht 170.2 cm; Wt 81.6 kg
[~2022-01-30 12:18] MED LIST changes: -CYCLOPENTOLATE 1% OPHTH SOLN 2 ML BTL OD SCH; +CYCLOPENTOLATE 1% OPHTH SOLN 2 ML BTL OS SCH; +NICO2LOZ8 PO; +NICOTINE CARTRIDGE; -OFLOXACIN 0.3 % (OCUFLOX) OPTH SOL 5ML OD ONE; +OFLOXACIN 0.3 % (OCUFLOX) OPTH SOL 5ML OS ONE; -PHENYLEPHRINE 2.5% OPHTH SOL 2ML OD SCH; +PHENYLEPHRINE 2.5% OPHTH SOL 2ML OS SCH; -PHENYLEPHRINE HCL 10 % OPHTH. SOL 5ML OD PRN; +PHENYLEPHRINE HCL 10 % OPHTH. SOL 5ML OS PRN; +TREL1AER INH; -TROPICAMIDE 1% OPHTH SOLN 2ML OD SCH; +TROPICAMIDE 1% OPHTH SOLN 2ML OS SCH; +acetaZOLAMIDE 500MG ER CAP PO ONE; +chantix PO
[2022-01-30] MEDS ORDERED: MIDAZOLAM INJ 2MG/2ML VIAL (J2250 PER 1MG) As Ordered ONE (13:07)
[2022-01-30] MEDS ORDERED: fentaNYL 100 MCG/2 ML INJECTION As Ordered ONE (13:07)
[2022-01-30] MEDS ORDERED: acetaZOLAMIDE 500MG ER CAP PO ONE (13:45)
[2022-01-30] MEDS ORDERED: ACETAMINOPHEN 325 MG TAB PO PRN ×2 (13:55→15:45)
[2022-01-30] MEDS ORDERED: ONDANSETRON 4MG TAB PO PRN ×2 (13:55→15:45)
[2022-01-30 14:30] VITALS: BP 113/61
== END 2022-01-30 14:34 | disposition home or self-care (01) ==
LOC: M SDC 12:18
PROVIDERS: ATTEND Ophthalmology
DX: H25.9 Unspecified age-related cataract (principal); I11.9 Hypertensive heart disease without heart failure; E11.9 Type 2 diabetes mellitus without complications; Z79.899 Other long term (current) drug therapy; Z91.041 Radiographic dye allergy status; Z91.018 Allergy to other foods
CPT/HCPCS: 66984; J0697; J2250; J3010; V2632

== ENCOUNTER → 2023-03-03 | Outpatient (CLI) | payer OTHER, MEDICAID ==
[~2023-03-03] MED LIST changes: -BSS IRRIG/VANCO(10MG)/TOBRA(5MG)/EPINEPH(1:1000-0.5CC)500ML BAG-ORONLY IR ONE; -CEFUROXIME 1MG/0.1ML INTRACAMERAL INJ As Ordered ONE; -CYCLOPENTOLATE 1% OPHTH SOLN 2 ML BTL OS SCH; -LIDOCAINE 1% SDV 5ML VIAL As Ordered ONE; -LIDOCAINE 3.5 % 1ML OPHTH TOPICAL GEL OU ONE; -OFLOXACIN 0.3 % (OCUFLOX) OPTH SOL 5ML OS ONE; -PHENYLEPHRINE 2.5% OPHTH SOL 2ML OS SCH; -PHENYLEPHRINE HCL 10 % OPHTH. SOL 5ML OS PRN; -TROPICAMIDE 1% OPHTH SOLN 2ML OS SCH; -acetaZOLAMIDE 500MG ER CAP PO ONE
== END ==
LOC: M WHC 14:42
PROVIDERS: ATTEND Internal Medicine
DX: Z78.0 Asymptomatic menopausal state (principal)

== ENCOUNTER 2023-04-02 20:27 | Emergency (ER) | payer OTHER, MEDICAID ==
[~2023-04-02] VITALS: Ht 170.2 cm; Wt 78.6 kg
[2023-04-02] MEDS ORDERED: NS 1,000 ML IV ONE (20:55)
[2023-04-02 21:20] LABS: BASO % 0.3 % (0.0-1.0); EOS % 0.4 % (0.0-3.0); HEMATOCRIT 28.4 % (36.0-47.0); HEMOGLOBIN 8.8 g/dl (12.0-15.5); LYMPH # 1.2 10^3/uL (1.5-5.0); LYMPH % 15.5 % (24.0-44.0); MONO # 0.7 10^3/uL (0.0-0.8); NEUTROPHILS # 5.9 10^3/uL (1.5-8.5); NEUTROPHILS % 74.4 % (36.0-66.0); PLATELET COUNT, AUTOMATED 490 10^3/uL (150-450); RED BLOOD COUNT 3.38 10^6/uL (4.00-5.40); WHITE BLOOD COUNT 7.9 10^3/uL (4.0-10.0)
[2023-04-02 21:43] LABS: INR 1.4; PARTIAL THROMBOPLASTIN TIME 32.4 SECONDS (24.8-34.2); PROTHROMBIN TIME 16.7 SECONDS (12.5-14.5)
[2023-04-02 21:53] LABS: CK-MB VALUE MASS < 1.0 NG/ML (<3.6); LIPASE 65 U/L (12-53)
[2023-04-02 21:55] LABS: ALBUMIN 2.4 G/DL (3.2-5.2); ALKALINE PHOSPHATASE 64 U/L (46-116); ALT/SGPT 66 U/L (7.0-40); AST/SGOT 48 U/L (<34); BILIRUBIN,DIRECT 0.3 MG/DL (<0.4); BILIRUBIN,TOTAL 0.5 MG/DL (0.3-1.2); BLOOD UREA NITROGEN 22 MG/DL (9-23); CALCIUM LEVEL 8.9 MG/DL (8.3-10.6); CARBON DIOXIDE LEVEL 25 MMOL/L (20-31); CHLORIDE LEVEL 102 MMOL/L (98-107); CPK CREATINE PHOSPHOKINASE 113 U/L (34-145); CREATININE FOR GFR 1.28 MG/DL (0.55-1.30); GLOMERULAR FILTRATION RATE 44.4 (>45); GLUCOSE, FASTING 249 MG/DL (74-106); MB/CK RELATIVE INDEX 0.88 (< OR =4); SODIUM LEVEL 137 MMOL/L (136-145); TOTAL PROTEIN 6.3 G/DL (5.7-8.2)
[2023-04-02 23:12] LABS: CK-MB VALUE MASS < 1.0 NG/ML (<3.6)
[2023-04-02 23:13] LABS: CPK CREATINE PHOSPHOKINASE 97 U/L (34-145); MB/CK RELATIVE INDEX 1.03 (< OR =4)
[2023-04-03 02:15] VITALS: BP 152/81; TEMP 98.6
[2023-04-03 02:16] VITALS: O2SAT 94
== END 2023-04-03 02:56 | disposition home or self-care (01) ==
LOC: EDBD 20:27 → M ED 20:27
DX: U07.1 COVID-19 (principal); I25.10 Atherosclerotic heart disease of native coronary artery without angina pectoris; E11.9 Type 2 diabetes mellitus without complications; I10 Essential (primary) hypertension; E78.5 Hyperlipidemia, unspecified; Z79.82 Long term (current) use of aspirin; Z79.899 Other long term (current) drug therapy; Z91.041 Radiographic dye allergy status; Z91.018 Allergy to other foods

== ENCOUNTER 2023-05-28 08:09 | Inpatient (IN) | payer OTHER, MEDICAID ==
[~2023-05-28] VITALS: Ht 170.2 cm; Wt 78.3 kg
[2023-05-28] VITALS (7 sets, daily range): BP systolic 127–148; BP diastolic 63–74; TEMP 97.1–97.9; O2SAT 90–98
[2023-05-28] MEDS ORDERED: ONDANSETRON 4MG 2ML VIAL IV ONE (08:25)
[2023-05-28] MEDS: MORPHINE 4 MG/ML 1ML VIAL IV PRN ×2 (08:46→09:40)
[2023-05-28 08:56] LABS: BASO # 0.1 10^3/uL (0.0-0.2); BASO % 0.5 % (0.0-1.0); EOS # 0.3 10^3/uL (0.0-0.5); HEMATOCRIT 30.9 % (36.0-47.0); LYMPH # 1.5 10^3/uL (1.5-5.0); LYMPH % 12.1 % (24.0-44.0); MEAN CORPUSCULAR HEMOGLOBIN 24.5 pg (27.0-33.0); MEAN CORPUSCULAR HGB CONC 29.1 g/dl (32.0-36.5); MEAN CORPUSCULAR VOLUME 84.2 fl (80.0-96.0); MONO # 0.6 10^3/uL (0.0-0.8); MONO % 4.9 % (2.0-8.0); NEUTROPHILS # 9.9 10^3/uL (1.5-8.5); PLATELET COUNT, AUTOMATED 320 10^3/uL (150-450); RED BLOOD COUNT 3.67 10^6/uL (4.00-5.40); WHITE BLOOD COUNT 12.3 10^3/uL (4.0-10.0)
[2023-05-28] MEDS: lisinopriL 5 MG TAB PO SCH (09:00)
[2023-05-28] MEDS: DULoxetine 30MG CAPSULE (CYMBALTA) PO SCH (09:00)
[2023-05-28] MEDS: METOPROLOL SUCC (TopROL XL) 50MG **XL** TAB PO SCH (09:00)
[2023-05-28] MEDS: ROSUVASTATIN 10 MG TAB (CRESTOR) PO SCH (09:00)
[2023-05-28 09:08] LABS: INR 1.12; PROTHROMBIN TIME 14.1 SECONDS (12.5-14.5)
[2023-05-28 09:18] LABS: ALBUMIN 3.6 G/DL (3.2-5.2); ALKALINE PHOSPHATASE 58 U/L (46-116); ALT/SGPT 33 U/L (7.0-40); AST/SGOT 25 U/L (<34); BILIRUBIN,TOTAL 0.3 MG/DL (0.3-1.2); BLOOD UREA NITROGEN 16 MG/DL (9-23); CALCIUM LEVEL 9.2 MG/DL (8.3-10.6); CARBON DIOXIDE LEVEL 26 MMOL/L (20-31); CHLORIDE LEVEL 107 MMOL/L (98-107); CREATININE FOR GFR 0.97 MG/DL (0.55-1.30); GLOMERULAR FILTRATION RATE > 60.0 (>45); GLUCOSE, FASTING 253 MG/DL (74-106); POTASSIUM SERUM 4.2 MMOL/L (3.5-5.1); SODIUM LEVEL 138 MMOL/L (136-145); TOTAL PROTEIN 7.2 G/DL (5.7-8.2)
[2023-05-28] MEDS ORDERED: DEXTROSE 50% 50ML SYRINGE IV PRN (09:35)
[2023-05-28] MEDS ORDERED: GLUCAGON INJ 1MG VIAL SC PRN (09:35)
[2023-05-28] MEDS ORDERED: MED REC IN PROGRESS XX SCH (09:35)
[2023-05-28] MEDS ORDERED: GLUCOSE 4GM CHEW TABLET PO PRN (09:35)
[2023-05-28] MEDS: D5W/0.45% SODIUM CHLORIDE 1,000 ML IV SCH ×2 (09:48→22:10)
[2023-05-28] MEDS ORDERED: CEPH500C PO (10:48)
[2023-05-28] MEDS ORDERED: ROSU40TA4 PO (10:48)
[2023-05-28] MEDS ORDERED: GABA-1171 PO (10:48)
[2023-05-28] MEDS ORDERED: BACL5TAB2 PO (10:48)
[2023-05-28] MEDS ORDERED: HOME MED LIST COMPLETE! XX SCH (10:50)
[2023-05-28] MEDS ORDERED: INSULIN LISPRO (NovoLOG) PER UNIT SC SCH (12:00)
[2023-05-28] MEDS: MORPHINE 2 MG/ML 1ML VIAL IV PRN (12:21)
[2023-05-28] MEDS ORDERED: propofoL 200 MG/20 ML VIAL As Ordered ONE (14:12)
[2023-05-28] MEDS ORDERED: LIDOCAINE 2% 100MG/5ML SDV (FOR ANES.) As Ordered ONE (14:12)
[2023-05-28] MEDS ORDERED: MORPHINE 2 MG/ML 1ML VIAL IV ONE (14:25)
[2023-05-28] MEDS ORDERED: fentaNYL 100 MCG/2 ML INJECTION As Ordered ONE (15:29)
[2023-05-28] MEDS ORDERED: MIDAZOLAM INJ 2MG/2ML VIAL As Ordered ONE (15:29)
[2023-05-28] MEDS ORDERED: ONDANSETRON 4MG 2ML VIAL As Ordered ONE (15:45)
[2023-05-28] MEDS ORDERED: ACETAMINOPHEN 1000MG 100ML IV BAG As Ordered ONE (16:03)
[2023-05-28] MEDS ORDERED: KETOROLAC 60MG 2ML VIAL As Ordered ONE (16:10)
[2023-05-28] MEDS ORDERED: fentaNYL 100 MCG/2 ML INJECTION IV PRN (16:55)
[2023-05-28] MEDS ORDERED: ONDANSETRON 4MG 2ML VIAL IV PRN (16:55)
[2023-05-28] MEDS ORDERED: oxyCODONE 5MG TAB PO PRN (16:55)
[2023-05-28] MEDS ORDERED: HYDROMORPHONE HCL 0.5 MG/ 0.5 ML SYRINGE IV PRN (16:55)
[2023-05-28] MEDS ORDERED: LR 1,000 ML IV SCH (16:55)
[2023-05-28] MEDS: INSULIN LISPRO (NovoLOG) PER UNIT SC SCH ×2 (17:30→21:00)
[2023-05-28 18:58] LABS: BLOOD UREA NITROGEN 14 MG/DL (9-23); CALCIUM LEVEL 8.9 MG/DL (8.3-10.6); CARBON DIOXIDE LEVEL 25 MMOL/L (20-31); CHLORIDE LEVEL 107 MMOL/L (98-107); CREATININE FOR GFR 0.82 MG/DL (0.55-1.30); GLOMERULAR FILTRATION RATE > 60.0 (>45); GLUCOSE, FASTING 191 MG/DL (74-106); POTASSIUM SERUM 4.6 MMOL/L (3.5-5.1); SODIUM LEVEL 136 MMOL/L (136-145)
[2023-05-28 19:52] LABS: PROCALCITONIN 0.06 ng/ml
[2023-05-28 20:28] LABS: BASO % 0.2 % (0.0-1.0); HEMATOCRIT 26.5 % (36.0-47.0); LYMPH # 0.7 10^3/uL (1.5-5.0); LYMPH % 5.6 % (24.0-44.0); MEAN CORPUSCULAR HEMOGLOBIN 24.9 pg (27.0-33.0); MEAN CORPUSCULAR HGB CONC 30.2 g/dl (32.0-36.5); MEAN CORPUSCULAR VOLUME 82.6 fl (80.0-96.0); MONO # 0.6 10^3/uL (0.0-0.8); MONO % 4.5 % (2.0-8.0); NEUTROPHILS # 11.1 10^3/uL (1.5-8.5); NEUTROPHILS % 89.3 % (36.0-66.0); PLATELET COUNT, AUTOMATED 309 10^3/uL (150-450); RED BLOOD COUNT 3.21 10^6/uL (4.00-5.40); WHITE BLOOD COUNT 12.4 10^3/uL (4.0-10.0)
[2023-05-28] MEDS: ceFAZolin SOD 2 GM in IV 1 EA IV SCH (22:10)
[2023-05-29] VITALS (14 sets, daily range): BP systolic 104–136; BP diastolic 57–79; TEMP 97.5–98.6; O2SAT 2–100
[2023-05-29] MEDS: MORPHINE 2 MG/ML 1ML VIAL IV PRN ×3 (02:28→22:14)
[2023-05-29] MEDS: traMADol 50 MG TAB PO PRN (05:32)
[2023-05-29] MEDS: ceFAZolin SOD 2 GM in IV 1 EA IV SCH (05:35)
[2023-05-29 06:50] LABS: BASO % 0.2 % (0.0-1.0); HEMATOCRIT 22.9 % (36.0-47.0); LYMPH # 1.6 10^3/uL (1.5-5.0); LYMPH % 16.4 % (24.0-44.0); MEAN CORPUSCULAR HEMOGLOBIN 25.3 pg (27.0-33.0); MEAN CORPUSCULAR HGB CONC 30.6 g/dl (32.0-36.5); MEAN CORPUSCULAR VOLUME 82.7 fl (80.0-96.0); MONO # 1.1 10^3/uL (0.0-0.8); MONO % 11.2 % (2.0-8.0); NEUTROPHILS # 7.1 10^3/uL (1.5-8.5); NEUTROPHILS % 71.9 % (36.0-66.0); PLATELET COUNT, AUTOMATED 293 10^3/uL (150-450); RED BLOOD COUNT 2.77 10^6/uL (4.00-5.40); WHITE BLOOD COUNT 9.9 10^3/uL (4.0-10.0)
[2023-05-29 07:20] LABS: CALCIUM LEVEL 8.6 MG/DL (8.3-10.6); CREATININE FOR GFR 0.99 MG/DL (0.55-1.30); GLOMERULAR FILTRATION RATE 59.7 (>45); POTASSIUM SERUM 4.4 MMOL/L (3.5-5.1)
[2023-05-29] MEDS ORDERED: traMADol 50 MG TAB PO ONE (08:15)
[2023-05-29 09:20] LABS: HEMATOCRIT 23.4 % (36.0-47.0)
[2023-05-29] MEDS: ROSUVASTATIN 10 MG TAB (CRESTOR) PO SCH (09:26)
[2023-05-29] MEDS: INSULIN LISPRO (NovoLOG) PER UNIT SC SCH ×4 (09:26→21:00)
[2023-05-29] MEDS: DULoxetine 30MG CAPSULE (CYMBALTA) PO SCH (09:27)
[2023-05-29] MEDS: lisinopriL 5 MG TAB PO SCH (09:28)
[2023-05-29] MEDS: METOPROLOL SUCC (TopROL XL) 50MG **XL** TAB PO SCH (09:28)
[2023-05-29] MEDS: D5W/0.45% SODIUM CHLORIDE 1,000 ML IV SCH (09:29)
[2023-05-30] MEDS: D5W/0.45% SODIUM CHLORIDE 1,000 ML IV SCH (00:43)
[2023-05-30] MEDS: traMADol 50 MG TAB PO PRN (06:01)
[2023-05-30] MEDS: MORPHINE 2 MG/ML 1ML VIAL IV PRN (06:01)
[2023-05-30 06:12] VITALS: BP 119/59; TEMP 97.7; O2SAT 93
[2023-05-30 06:32] LABS: BASO # 0.1 10^3/uL (0.0-0.2); BASO % 0.6 % (0.0-1.0); EOS # 0.1 10^3/uL (0.0-0.5); EOS % 0.6 % (0.0-3.0); LYMPH # 1.4 10^3/uL (1.5-5.0); MEAN CORPUSCULAR HGB CONC 32.3 g/dl (32.0-36.5); MEAN CORPUSCULAR VOLUME 83.7 fl (80.0-96.0); MONO # 1.2 10^3/uL (0.0-0.8); MONO % 10.9 % (2.0-8.0); NEUTROPHILS # 8.1 10^3/uL (1.5-8.5); NEUTROPHILS % 74.2 % (36.0-66.0); PLATELET COUNT, AUTOMATED 247 10^3/uL (150-450); RED BLOOD COUNT 3.44 10^6/uL (4.00-5.40); WHITE BLOOD COUNT 10.8 10^3/uL (4.0-10.0)
[2023-05-30 06:45] LABS: HEMATOCRIT 28.8 % (36.0-47.0); HEMOGLOBIN 9.3 g/dl (12.0-15.5)
[2023-05-30 06:51] LABS: BLOOD UREA NITROGEN 13 MG/DL (9-23); CALCIUM LEVEL 8.4 MG/DL (8.3-10.6); CARBON DIOXIDE LEVEL 24 MMOL/L (20-31); CHLORIDE LEVEL 107 MMOL/L (98-107); CREATININE FOR GFR 0.79 MG/DL (0.55-1.30); GLOMERULAR FILTRATION RATE > 60.0 (>45); GLUCOSE, FASTING 272 MG/DL (74-106); POTASSIUM SERUM 3.8 MMOL/L (3.5-5.1); SODIUM LEVEL 139 MMOL/L (136-145)
[2023-05-30] MEDS ORDERED: NIRMATRELVIR/RITONAVIR CO-PACK (EMERGENCY USE AUTH) PO SCH (09:00)
[2023-05-30] MEDS: INSULIN LISPRO (NovoLOG) PER UNIT SC SCH ×4 (10:02→21:00)
[2023-05-30] MEDS: ACETAMINOPHEN 500 MG TAB PO SCH ×3 (10:03→21:07)
[2023-05-30] MEDS: DULoxetine 30MG CAPSULE (CYMBALTA) PO SCH (10:03)
[2023-05-30] MEDS: lisinopriL 5 MG TAB PO SCH (10:04)
[2023-05-30] MEDS: METOPROLOL SUCC (TopROL XL) 50MG **XL** TAB PO SCH (10:04)
[2023-05-30] MEDS: ENOXAPARIN 40MG/0.4ML SYRINGE (J1650 PER 10MG) SC SCH (10:04)
[2023-05-30] MEDS ORDERED: traMADol 50 MG TAB PO PRN (13:30)
[2023-05-30 13:50] VITALS: BP 118/60; TEMP 97.9; O2SAT 96
[2023-05-30 18:40] LABS: HEMATOCRIT 27.9 % (36.0-47.0); HEMOGLOBIN 9.1 g/dl (12.0-15.5)
[2023-05-30] MEDS: LEVEMIR (INSULIN DETEMIR) 1 UNITS/0.01ML SC SCH (21:06)
[2023-05-30 21:35] VITALS: BP 113/62; TEMP 97.5; O2SAT 97
[2023-05-31] MEDS ORDERED: traMADol 50 MG TAB PO PRN (03:35)
[2023-05-31] MEDS: PERCOCET 5MG/325MG TAB PO PRN (04:23)
[2023-05-31 06:21] VITALS: BP 114/62; TEMP 97.9; O2SAT 95
[2023-05-31 06:22] LABS: BASO # 0.1 10^3/uL (0.0-0.2); BASO % 0.6 % (0.0-1.0); EOS # 0.1 10^3/uL (0.0-0.5); EOS % 0.8 % (0.0-3.0); HEMATOCRIT 29.7 % (36.0-47.0); HEMOGLOBIN 9.5 g/dl (12.0-15.5); LYMPH # 1.2 10^3/uL (1.5-5.0); LYMPH % 13.8 % (24.0-44.0); MEAN CORPUSCULAR VOLUME 84.4 fl (80.0-96.0); MONO # 0.9 10^3/uL (0.0-0.8); MONO % 10.1 % (2.0-8.0); NEUTROPHILS # 6.4 10^3/uL (1.5-8.5); NEUTROPHILS % 74.1 % (36.0-66.0); PLATELET COUNT, AUTOMATED 255 10^3/uL (150-450); RED BLOOD COUNT 3.52 10^6/uL (4.00-5.40); WHITE BLOOD COUNT 8.6 10^3/uL (4.0-10.0)
[2023-05-31 06:49] LABS: BLOOD UREA NITROGEN 12 MG/DL (9-23); CALCIUM LEVEL 8.7 MG/DL (8.3-10.6); CARBON DIOXIDE LEVEL 26 MMOL/L (20-31); CHLORIDE LEVEL 107 MMOL/L (98-107); CREATININE FOR GFR 0.78 MG/DL (0.55-1.30); GLOMERULAR FILTRATION RATE > 60.0 (>45); GLUCOSE, FASTING 211 MG/DL (74-106); POTASSIUM SERUM 3.6 MMOL/L (3.5-5.1); SODIUM LEVEL 140 MMOL/L (136-145)
[2023-05-31] MEDS: DULoxetine 30MG CAPSULE (CYMBALTA) PO SCH (08:35)
[2023-05-31] MEDS: ACETAMINOPHEN 500 MG TAB PO SCH ×3 (08:35→21:29)
[2023-05-31] MEDS: METOPROLOL SUCC (TopROL XL) 50MG **XL** TAB PO SCH (08:36)
[2023-05-31] MEDS: ENOXAPARIN 40MG/0.4ML SYRINGE (J1650 PER 10MG) SC SCH (08:36)
[2023-05-31] MEDS: INSULIN LISPRO (NovoLOG) PER UNIT SC SCH ×4 (08:37→21:00)
[2023-05-31] MEDS: VANICREAM MOISTURIZING SKIN CREAM 113GM TUBE TOP SCH ×2 (16:00→21:30)
[2023-05-31] MEDS: LEVEMIR (INSULIN DETEMIR) 1 UNITS/0.01ML SC SCH (21:29)
[2023-06-01 06:07] VITALS: BP 106/53; TEMP 97; O2SAT 98
[2023-06-01 06:39] LABS: BLOOD UREA NITROGEN 14 MG/DL (9-23); CALCIUM LEVEL 8.4 MG/DL (8.3-10.6); CARBON DIOXIDE LEVEL 24 MMOL/L (20-31); CHLORIDE LEVEL 107 MMOL/L (98-107); CREATININE FOR GFR 0.79 MG/DL (0.55-1.30); GLOMERULAR FILTRATION RATE > 60.0 (>45); GLUCOSE, FASTING 231 MG/DL (74-106); POTASSIUM SERUM 3.3 MMOL/L (3.5-5.1); SODIUM LEVEL 138 MMOL/L (136-145)
[2023-06-01] MEDS: METOPROLOL SUCC (TopROL XL) 50MG **XL** TAB PO SCH (09:00)
[2023-06-01] MEDS: ENOXAPARIN 40MG/0.4ML SYRINGE (J1650 PER 10MG) SC SCH (09:36)
[2023-06-01] MEDS: INSULIN LISPRO (NovoLOG) PER UNIT SC SCH ×4 (09:36→20:37)
[2023-06-01] MEDS: DULoxetine 30MG CAPSULE (CYMBALTA) PO SCH (09:37)
[2023-06-01] MEDS: ACETAMINOPHEN 500 MG TAB PO SCH ×3 (09:37→20:38)
[2023-06-01] MEDS: VANICREAM MOISTURIZING SKIN CREAM 113GM TUBE TOP SCH ×3 (09:38→20:38)
[2023-06-01] MEDS: LEVEMIR (INSULIN DETEMIR) 1 UNITS/0.01ML SC SCH (20:37)
[2023-06-01 20:50] VITALS: BP 135/63; TEMP 97.5; O2SAT 100
[2023-06-02] MEDS ORDERED: RAMELTEON 8 MG TAB (ROZEREM) PO PRN (00:05)
[2023-06-02 06:00] VITALS: BP 111/64; TEMP 97.2; O2SAT 100
[2023-06-02 06:50] LABS: BLOOD UREA NITROGEN 16 MG/DL (9-23); CARBON DIOXIDE LEVEL 22 MMOL/L (20-31); CHLORIDE LEVEL 104 MMOL/L (98-107); CREATININE FOR GFR 0.85 MG/DL (0.55-1.30); GLOMERULAR FILTRATION RATE > 60.0 (>45); GLUCOSE, FASTING 292 MG/DL (74-106); POTASSIUM SERUM 3.5 MMOL/L (3.5-5.1); SODIUM LEVEL 137 MMOL/L (136-145)
[2023-06-02] MEDS: INSULIN LISPRO (NovoLOG) PER UNIT SC SCH ×2 (07:43→12:53)
[2023-06-02] MEDS: ENOXAPARIN 40MG/0.4ML SYRINGE (J1650 PER 10MG) SC SCH (08:37)
[2023-06-02] MEDS: ACETAMINOPHEN 500 MG TAB PO SCH ×2 (08:39→16:00)
[2023-06-02] MEDS: DULoxetine 30MG CAPSULE (CYMBALTA) PO SCH (08:39)
[2023-06-02] MEDS: VANICREAM MOISTURIZING SKIN CREAM 113GM TUBE TOP SCH (08:47)
[2023-06-02 09:00] VITALS: BP 112/60
[2023-06-02] MEDS: METOPROLOL SUCC (TopROL XL) 50MG **XL** TAB PO SCH (09:00)
[2023-06-02] MEDS ORDERED: CLOPIDOGREL 75 MG TAB PO SCH (09:00)
[2023-06-02] MEDS ORDERED: DOCUSATE SODIUM 100MG CAPSULE PO PRN (11:45)
[2023-06-02] MEDS ORDERED: GABA-284 PO (15:43)
[2023-06-02] MEDS ORDERED: GABA-1171 PO (15:43)
[2023-06-02] MEDS ORDERED: ACET-683 PO (15:43)
[2023-06-02] MEDS: PERCOCET 5MG/325MG TAB PO PRN (15:48)
[2023-06-02] MEDS ORDERED: GABAPENTIN 400MG CAP PO SCH (16:00)
[2023-06-02] MEDS ORDERED: GABAPENTIN 100 MG CAP PO SCH (21:00)
== END 2023-06-02 16:30 | DRG 481 ==
LOC: M ED 08:09 → EDBD 08:09 → M ED INP 09:34 → M MS5PR 17:35
PROVIDERS: ADMIT General Practice; ATTEND Family Medicine
PROC: 0QS706Z Reposition Left Upper Femur with Intramedullary Internal Fixation Device, Open Approach (ICD-10-PCS; principal; 2023-05-28 14:30)
PROC: 30233N1 Transfusion of Nonautologous Red Blood Cells into Peripheral Vein, Percutaneous Approach (ICD-10-PCS; 2023-05-29)
DX: S72.142D Displaced intertrochanteric fracture of left femur, subsequent encounter for closed fracture with routine healing (principal); J98.11 Atelectasis; D62 Acute posthemorrhagic anemia; I25.10 Atherosclerotic heart disease of native coronary artery without angina pectoris; I73.9 Peripheral vascular disease, unspecified; I10 Essential (primary) hypertension; J44.9 Chronic obstructive pulmonary disease, unspecified; W18.30XA Fall on same level, unspecified, initial encounter; Y92.009 Unspecified place in unspecified non-institutional (private) residence as the place of occurrence of the external cause; Y93.89 Activity, other specified; Y99.8 Other external cause status; I25.2 Old myocardial infarction; F17.210 Nicotine dependence, cigarettes, uncomplicated; E11.40 Type 2 diabetes mellitus with diabetic neuropathy, unspecified; G89.29 Other chronic pain; M54.9 Dorsalgia, unspecified; F41.9 Anxiety disorder, unspecified; F32.A Depression, unspecified; Z98.42 Cataract extraction status, left eye; Z96.1 Presence of intraocular lens; Z95.5 Presence of coronary angioplasty implant and graft; Z98.62 Peripheral vascular angioplasty status; Z79.02 Long term (current) use of antithrombotics/antiplatelets; Z79.82 Long term (current) use of aspirin; Z79.84 Long term (current) use of oral hypoglycemic drugs; Z79.899 Other long term (current) drug therapy; Z91.018 Allergy to other foods; Z91.041 Radiographic dye allergy status; Z96.641 Presence of right artificial hip joint; F17.290 Nicotine dependence, other tobacco product, uncomplicated

== ENCOUNTER → 2023-06-11 | Outpatient (CLI) | payer OTHER, MEDICAID ==
[~2023-06-11] MED LIST changes: +ACET-683 PO; +BACL5TAB2 PO; +CEPH500C PO; +GABA-1171 PO; +GABA-284 PO; +ROSU40TA4 PO
== END ==
LOC: M SOG 08:00
PROVIDERS: ATTEND Physician Assistant
DX: S72.142A Displaced intertrochanteric fracture of left femur, initial encounter for closed fracture (principal); W18.30XA Fall on same level, unspecified, initial encounter; Y92.009 Unspecified place in unspecified non-institutional (private) residence as the place of occurrence of the external cause

== ENCOUNTER → 2023-07-09 | Outpatient (CLI) | payer OTHER, MEDICAID | LOC: M SOG 08:00 | PROVIDERS: ATTEND Physician Assistant | DX: S72.142A Displaced intertrochanteric fracture of left femur, initial encounter for closed fracture (principal); W18.30XA Fall on same level, unspecified, initial encounter; Y92.009 Unspecified place in unspecified non-institutional (private) residence as the place of occurrence of the external cause ==

== ENCOUNTER 2023-08-08 19:05 | Emergency (ER) | payer OTHER, MEDICAID ==
[~2023-08-08] VITALS: Ht 170.2 cm; Wt 63.6 kg
[2023-08-08 19:49] LABS: BASO % 0.6 % (0.0-1.0); EOS % 0.1 % (0.0-3.0); HEMATOCRIT 30.7 % (36.0-47.0); HEMOGLOBIN 9.6 g/dl (12.0-15.5); LYMPH # 1.1 10^3/uL (1.5-5.0); LYMPH % 10.7 % (24.0-44.0); MEAN CORPUSCULAR HEMOGLOBIN 27.1 pg (27.0-33.0); MEAN CORPUSCULAR HGB CONC 31.3 g/dl (32.0-36.5); MEAN CORPUSCULAR VOLUME 86.7 fl (80.0-96.0); MONO % 8.1 % (2.0-8.0); NEUTROPHILS # 8.4 10^3/uL (1.5-8.5); NEUTROPHILS % 80.1 % (36.0-66.0); PLATELET COUNT, AUTOMATED 313 10^3/uL (150-450); RED BLOOD COUNT 3.54 10^6/uL (4.00-5.40); WHITE BLOOD COUNT 10.5 10^3/uL (4.0-10.0)
[2023-08-08 19:50] LABS: BASO # 0.1 10^3/uL (0.0-0.2); MONO # 0.9 10^3/uL (0.0-0.8)
[2023-08-08 20:05] LABS: BILIRUBIN,TOTAL 0.4 MG/DL (0.3-1.2); CALCIUM LEVEL 9.3 MG/DL (8.3-10.6); CREATININE FOR GFR 1.03 MG/DL (0.55-1.30); GLOMERULAR FILTRATION RATE 57.1 (>45); POTASSIUM SERUM 3.5 MMOL/L (3.5-5.1); TOTAL PROTEIN 6.7 G/DL (5.7-8.2)
[2023-08-08] MEDS: NS 1,910 ML in IV 1 EA IV ONE (20:19)
[2023-08-08] MEDS: cefTRIAXone SOD 2 GM in D5W MINI-BAG PLUS 50 ML IV ONE (20:32)
[2023-08-08 21:06] LABS: ERYTHROCYTE SEDIMENTATION RATE 105 mm/hr (0-30)
[2023-08-08] MEDS: NS 1,000 ML IV ONE (22:00)
[2023-08-08] MEDS ORDERED: HOME MED LIST COMPLETE! XX SCH (22:20)
[2023-08-08] MEDS ORDERED: CEFD1CAP9 PO (22:49)
[2023-08-08 23:15] VITALS: BP 138/62; TEMP 99.1; O2SAT 99
== END 2023-08-08 23:31 | disposition left against medical advice (07) ==
LOC: M ED 19:05
DX: A41.9 Sepsis, unspecified organism (principal); N39.0 Urinary tract infection, site not specified; R00.0 Tachycardia, unspecified; I25.119 Atherosclerotic heart disease of native coronary artery with unspecified angina pectoris; E11.9 Type 2 diabetes mellitus without complications; I10 Essential (primary) hypertension; J44.9 Chronic obstructive pulmonary disease, unspecified; F17.210 Nicotine dependence, cigarettes, uncomplicated; Z91.018 Allergy to other foods; Z91.041 Radiographic dye allergy status; Z79.2 Long term (current) use of antibiotics; Z79.899 Other long term (current) drug therapy; Z79.84 Long term (current) use of oral hypoglycemic drugs; Z53.9 Procedure and treatment not carried out, unspecified reason
CPT/HCPCS: 71045; 73502; 74176; 80053; 81001; 83605; 85025; 85652; 86140; 87040; 87088; 87186; 87486; 87581; 87633; 87798; 93005; 96361; 96365; 99284; J0696

== ENCOUNTER → 2023-08-21 | Outpatient (CLI) | payer OTHER, MEDICAID ==
[~2023-08-21] MED LIST changes: +CEFD1CAP9 PO
== END ==
LOC: M SOG 15:33
PROVIDERS: ATTEND Physician Assistant
DX: S72.142A Displaced intertrochanteric fracture of left femur, initial encounter for closed fracture (principal); W18.30XA Fall on same level, unspecified, initial encounter; Y92.009 Unspecified place in unspecified non-institutional (private) residence as the place of occurrence of the external cause

== ENCOUNTER → 2023-09-18 | Outpatient (REF) | payer OTHER, MEDICAID ==
[~2023-09-18] MED LIST changes: -ROSU40TA4 PO; +ROSU40TA63 PO
[2023-09-18 16:05] LABS: APPEARANCE, URINE CLOUDY (CLEAR); BACTERIA, URINE AUTO 1+ (NEGATIVE); BILIRUBIN, URINE AUTO NEGATIVE (NEGATIVE); BLOOD, URINE BLOOD 1+ (NEGATIVE); COLOR, URINE YELLOW (YELLOW); GLUCOSE, URINE (UA) AUTO 2+ mg/dL (NEGATIVE); KETONE, URINE AUTO NEGATIVE (NEGATIVE); LEUKOCYTE ESTERASE, URINE AUTO 2+ (NEGATIVE); MUCUS, URINE SMALL (NEGATIVE); NITRITE, URINE AUTO NEGATIVE (NEGATIVE); PROTEIN, URINE AUTO 2+ mg/dL (NEGATIVE); RBC, URINE AUTO 1 /HPF (0-3); SPECIFIC GRAVITY URINE AUTO 1.012 (1.002-1.035); SQUAMOUS EPITHELIAL CELL UR AU 0 /HPF (0-6); UROBILINOGEN, URINE AUTO 0.2 mg/dL (0.0-2.0); WBC, URINE AUTO TNTC /HPF (0-3)
== END ==
LOC: M SMT 14:56
PROVIDERS: ATTEND Nurse Practitioner Family
DX: N39.0 Urinary tract infection, site not specified (principal)

== ENCOUNTER → 2023-10-03 | Outpatient (CLI) | payer OTHER, MEDICAID | LOC: M SOG 08:04 | PROVIDERS: ATTEND Orthopaedic Surgery | DX: S72.142A Displaced intertrochanteric fracture of left femur, initial encounter for closed fracture (principal) ==

== ENCOUNTER 2025-04-19 13:58 | Inpatient (IN) | payer MEDICARE, MEDICAID ==
[~2025-04-19] VITALS: Ht 167.6 cm; Wt 83.4 kg
[~2025-04-19 13:58] MED LIST changes: +GABA-1635 PO; -GABA800T4 PO; +GLIP-318 PO; -GLIP5TAB20 PO; -ROSU40TA63 PO; +ROSU40TA81 PO
[2025-04-19 14:54] LABS: BASO # 0.1 10^3/uL (0.0-0.2); BASO % 0.6 % (0.0-1.0); EOS # 0.0 10^3/uL (0.0-0.5); EOS % 0.1 % (0.0-3.0); LYMPH # 2.3 10^3/uL (1.5-5.0); LYMPH % 13.7 % (24.0-44.0); MONO # 1.4 10^3/uL (0.0-0.8); MONO % 8.5 % (2.0-8.0); NEUTROPHILS # 12.7 10^3/uL (1.5-8.5); NEUTROPHILS % 76.7 % (36.0-66.0); PLATELET COUNT, AUTOMATED 518 10^3/uL (150-450)
[2025-04-19 15:06] LABS: KETONE, URINE AUTO RFX NEGATIVE (NEGATIVE); MUCUS, URINE RFX SMALL (NEGATIVE); NITRITE, URINE AUTO RFX NEGATIVE (NEGATIVE); RBC, URINE AUTO RFX 65 /HPF (0-3); SQUAM EPITHELIAL CELL UR AURFX 0 /HPF (0-6)
[2025-04-19 15:09] LABS: LEUKOCYTE ESTERASE UR AUTO RFX 2+ (NEGATIVE); WBC, URINE AUTO RFX TNTC /HPF (0-3)
[2025-04-19 15:17] LABS: ALT/SGPT 15.0 U/L (7.0-40); AST/SGOT 52.0 U/L (<34); CALCIUM LEVEL 9.5 MG/DL (8.3-10.6); CARBON DIOXIDE LEVEL 23.0 MMOL/L (20-31); CHLORIDE LEVEL 108.0 MMOL/L (98-107); CREATININE FOR GFR 1.3 MG/DL (0.55-1.30); GLOMERULAR FILTRATION RATE 44.8 (>45); POTASSIUM SERUM 4.4 MMOL/L (3.5-5.1); SODIUM LEVEL 144.0 MMOL/L (136-145)
[2025-04-19] MEDS: cefTRIAXone SOD 1 GM in DEXTROSE 5% (D5W) ADV/MINI-BAG 50 ML IV ONE (16:38)
[2025-04-19] MEDS: NS (Normal Saline) 0.9% 1,000 ML IV ONE (17:11)
[2025-04-19] MEDS ORDERED: BUPR-71 PO (18:34)
[2025-04-19] MEDS ORDERED: ARIP1TAB6 PO (18:34)
[2025-04-19] MEDS ORDERED: MED REC COMMENT (18:36)
[2025-04-19] MEDS ORDERED: HOME MED LIST COMPLETE! XX SCH (18:40)
[2025-04-19] MEDS: diphenhydrAMINE 50 MG/ML VIAL IV STA ×2 (21:04→22:10)
[2025-04-19] MEDS: LR 1,000 ML IV ONE (21:08)
[2025-04-19] MEDS: ACETAMINOPHEN *IV* 1,000 MG in IV 1 EA IV ONE (22:10)
[2025-04-19] MEDS: NS 0.45% 1,000 ML IV SCH (22:10)
[2025-04-20] VITALS (12 sets, daily range): BP systolic 80–98; BP diastolic 53–58; PULSE 89; TEMP 97.2–98.6; O2SAT 96–99
[2025-04-20] MEDS ORDERED: ISOVUE-370 76% 100 ML VIAL As Ordered ONE (00:43)
[2025-04-20] MEDS: OLANZapine INTRAMUSCULAR 10MG VIAL IM STA (00:47)
[2025-04-20] MEDS ORDERED: EPINEPHrine INJ 1 MG/ML 1ML AMP As Ordered ONE (01:56)
[2025-04-20] MEDS ORDERED: ACETAMINOPHEN 325 MG TAB PO PRN (05:15)
[2025-04-20] MEDS ORDERED: MAALOX 30 ML SUSP *UDC PO PRN (05:15)
[2025-04-20] MEDS ORDERED: ONDANSETRON 4MG/2ML VIAL IV PRN (05:15)
[2025-04-20] MEDS ORDERED: MOM 30 ML SUSPENSION UDC PO PRN (05:15)
[2025-04-20] MEDS: NS (Normal Saline) 0.9% 1,000 ML IV SCH (05:15)
[2025-04-20] MEDS: UNRESOLVED CLARIFICATION ENTRY XX STA (05:36)
[2025-04-20] MEDS ORDERED: DEXTROSE 50% 50 ML SYRINGE IV PRN (05:45)
[2025-04-20] MEDS ORDERED: GLUCAGON INJ 1 MG VIAL SC PRN (05:45)
[2025-04-20] MEDS ORDERED: GLUCOSE 4 GM CHEW PO PRN (05:45)
[2025-04-20 07:09] LABS: PLATELET COUNT, AUTOMATED 377 10^3/uL (150-450)
[2025-04-20 07:18] LABS: ALT/SGPT 19.0 U/L (7.0-40); AST/SGOT 65.0 U/L (<34); CALCIUM LEVEL 8.7 MG/DL (8.3-10.6); CARBON DIOXIDE LEVEL 17.0 MMOL/L (20-31); CHLORIDE LEVEL 110.0 MMOL/L (98-107); CREATININE FOR GFR 0.89 MG/DL (0.55-1.30); GLOMERULAR FILTRATION RATE 70.6 (>45); POTASSIUM SERUM 4.6 MMOL/L (3.5-5.1); SODIUM LEVEL 141.0 MMOL/L (136-145)
[2025-04-20 07:24] LABS: INR 1.08
[2025-04-20] MEDS: INSULIN LISPRO (NovoLOG) PER UNIT SC SCH ×2 (07:30→20:50)
[2025-04-20] MEDS: ENOXAPARIN 40 MG/0.4 ML SYRINGE (J1650 PER 10MG) SC SCH (07:59)
[2025-04-20] MEDS: PANTOPRAZOLE 40MG VIAL IV SCH (07:59)
[2025-04-20] MEDS: DOCUSATE SODIUM 100 MG CAPSULE PO SCH (08:06)
[2025-04-20] MEDS: ROSUVASTATIN 10 MG TAB PO SCH (08:10)
[2025-04-20] MEDS: CLOPIDOGREL 75 MG TAB PO SCH (08:11)
[2025-04-20] MEDS: buPROPion **SR** 150 MG TABLET PO SCH (08:11)
[2025-04-20] MEDS: GABAPENTIN 300 MG CAP PO SCH (08:11)
[2025-04-20] MEDS: cefTRIAXone SOD 1 GM in DEXTROSE 5% (D5W) ADV/MINI-BAG 50 ML IV SCH (16:23)
[2025-04-20] MEDS: NS (Normal Saline) 0.9% 500 ML in IV 1 EA IV ONE (17:04)
[2025-04-20 17:23] LABS: BASO # 0.1 10^3/uL (0.0-0.2); BASO % 0.4 % (0.0-1.0); EOS # 0.0 10^3/uL (0.0-0.5); EOS % 0.1 % (0.0-3.0); LYMPH # 2.8 10^3/uL (1.5-5.0); LYMPH % 22.1 % (24.0-44.0); MONO # 1.2 10^3/uL (0.0-0.8); MONO % 9.0 % (2.0-8.0); NEUTROPHILS # 8.8 10^3/uL (1.5-8.5); NEUTROPHILS % 68.2 % (36.0-66.0); PLATELET COUNT, AUTOMATED 346 10^3/uL (150-450)
[2025-04-20 17:50] LABS: ALT/SGPT 20.0 U/L (7.0-40); AST/SGOT 40.0 U/L (<34); CALCIUM LEVEL 8.6 MG/DL (8.3-10.6); CARBON DIOXIDE LEVEL 22.0 MMOL/L (20-31); CHLORIDE LEVEL 108.0 MMOL/L (98-107); CREATININE FOR GFR 0.81 MG/DL (0.55-1.30); GLOMERULAR FILTRATION RATE 79.0 (>45); POTASSIUM SERUM 3.9 MMOL/L (3.5-5.1); SODIUM LEVEL 141.0 MMOL/L (136-145)
[2025-04-21] VITALS (26 sets, daily range): BP systolic 82–145; BP diastolic 46–80; TEMP 97.5–98.5; O2SAT 94–100
[2025-04-21 06:45] LABS: PLATELET COUNT, AUTOMATED 340 10^3/uL (150-450)
[2025-04-21 07:08] LABS: ALT/SGPT 22.0 U/L (7.0-40); AST/SGOT 38.0 U/L (<34); CALCIUM LEVEL 8.4 MG/DL (8.3-10.6); CARBON DIOXIDE LEVEL 22.0 MMOL/L (20-31); CHLORIDE LEVEL 111.0 MMOL/L (98-107); CREATININE FOR GFR 0.84 MG/DL (0.55-1.30); GLOMERULAR FILTRATION RATE 75.7 (>45); POTASSIUM SERUM 3.4 MMOL/L (3.5-5.1); SODIUM LEVEL 143.0 MMOL/L (136-145)
[2025-04-21 08:39] LABS: MAGNESIUM LEVEL 1.6 MG/DL (1.8-2.4)
[2025-04-21] MEDS: METOPROLOL TART 25 MG TABLET PO SCH (08:44)
[2025-04-21] MEDS: POTASSIUM CHLORIDE 10MEQ SR TABLET PO ONE (08:49)
[2025-04-21] MEDS: MAG SULF 1GM/100ML (MAG RUN) 1 GM in IV 1 EA IV ONE (10:52)
[2025-04-21] MEDS: traMADol 50 MG TAB PO ONE (22:41)
[2025-04-22] VITALS (21 sets, daily range): BP systolic 112–157; BP diastolic 48–72; TEMP 97.1–97.6; O2SAT 85–100
[2025-04-22 06:01] LABS: PLATELET COUNT, AUTOMATED 319 10^3/uL (150-450)
[2025-04-22 06:29] LABS: CALCIUM LEVEL 8.0 MG/DL (8.3-10.6); CARBON DIOXIDE LEVEL 19.0 MMOL/L (20-31); CHLORIDE LEVEL 114.0 MMOL/L (98-107); CREATININE FOR GFR 0.97 MG/DL (0.55-1.30); GLOMERULAR FILTRATION RATE 63.7 (>45); MAGNESIUM LEVEL 1.6 MG/DL (1.8-2.4); POTASSIUM SERUM 4.1 MMOL/L (3.5-5.1); SODIUM LEVEL 143.0 MMOL/L (136-145)
[2025-04-22] MEDS: MAG SULF 1GM/100ML (MAG RUN) 1 GM in IV 1 EA IV ONE (10:41)
[2025-04-22] MEDS: CEFPODOXIME PROXETIL 200 MG TABLET PO SCH (12:00)
[2025-04-22] MEDS ORDERED: BACI1CAP PO (14:38)
[2025-04-22] MEDS ORDERED: METO25TA4 PO (14:38)
[2025-04-22] MEDS ORDERED: CEFP200T PO (14:38)
[2025-04-22] MEDS ORDERED: ELIQ5TAB PO (14:38)
[2025-04-22] MEDS: SODIUM BICARBONATE 325 MG TAB PO ONE (15:20)
[2025-04-22 15:34] LABS: CALCIUM LEVEL 8.4 MG/DL (8.3-10.6); CARBON DIOXIDE LEVEL 18.0 MMOL/L (20-31); CHLORIDE LEVEL 112.0 MMOL/L (98-107); CREATININE FOR GFR 1.05 MG/DL (0.55-1.30); GLOMERULAR FILTRATION RATE 57.9 (>45); MAGNESIUM LEVEL 1.9 MG/DL (1.8-2.4); POTASSIUM SERUM 4.4 MMOL/L (3.5-5.1); SODIUM LEVEL 140.0 MMOL/L (136-145)
[2025-04-22] MEDS ORDERED: APIXABAN 5 MG TAB PO SCH (21:00)
[2025-05-16] MEDS ORDERED: ELIQ5TAB PO (17:01)
[2025-05-16] MEDS ORDERED: GABA-1635 PO (17:01)
[2025-05-16] MEDS ORDERED: LANTINJ4 SC (17:01)
[2025-05-16] MEDS ORDERED: B-12100021 PO (17:01)
[2025-05-16] MEDS ORDERED: METO25TA4 PO (17:04)
[2025-05-18] MEDS ORDERED: METO1TAB33 PO (11:41)
[2025-05-18] MEDS ORDERED: GABA-284 PO (11:41)
[2025-05-18] MEDS ORDERED: NICO7PA TD (11:41)
[2025-05-18] MEDS ORDERED: CEFD1CAP9 PO (11:41)
== END 2025-04-22 17:14 | disposition home or self-care (01) | DRG 871 ==
LOC: EDBD 13:58 → M ED 13:58 → M ED INP 04-20 05:13 → M PCU 04-20 13:00
PROVIDERS: ADMIT Student in an Organized Health Care Education/Training Program; ATTEND General Practice
PROC: B246ZZZ Ultrasonography of Right and Left Heart (ICD-10-PCS; principal; 2025-04-21)
DX: A41.9 Sepsis, unspecified organism (principal); G93.41 Metabolic encephalopathy; N39.0 Urinary tract infection, site not specified; I48.19 Other persistent atrial fibrillation; I25.10 Atherosclerotic heart disease of native coronary artery without angina pectoris; I25.2 Old myocardial infarction; E11.51 Type 2 diabetes mellitus with diabetic peripheral angiopathy without gangrene; E11.9 Type 2 diabetes mellitus without complications; E78.5 Hyperlipidemia, unspecified; J44.9 Chronic obstructive pulmonary disease, unspecified; G89.29 Other chronic pain; M54.9 Dorsalgia, unspecified; F41.9 Anxiety disorder, unspecified; F32.A Depression, unspecified; E83.42 Hypomagnesemia; F17.200 Nicotine dependence, unspecified, uncomplicated; R41.82 Altered mental status, unspecified; D75.838 Other thrombocytosis; E87.6 Hypokalemia; N20.0 Calculus of kidney; Z98.42 Cataract extraction status, left eye; Z95.5 Presence of coronary angioplasty implant and graft; Z79.2 Long term (current) use of antibiotics; Z79.84 Long term (current) use of oral hypoglycemic drugs; Z79.899 Other long term (current) drug therapy; Z98.62 Peripheral vascular angioplasty status; Z96.1 Presence of intraocular lens; Z91.018 Allergy to other foods; Z91.041 Radiographic dye allergy status